=== PATIENT | female | born 1965 | race African-American/Black ===

== ENCOUNTER 2017-08-10 12:53 | Outpatient (CLI) | payer MEDICARE, MEDICAID ==
--- NOTE | 2017-08-10 15:18 | MMO ---
BILATERAL DIGITAL SCREENING MAMMOGRAMS: Date: 08/10/17 This patient's mammogram was interpreted with the assistance of computer-aided detection. Comparison made with exam of 07/05/13. FINDINGS: There are scattered fibroglandular densities. No suspicious masses, calcifications, or architectura l distortion are seen. Nodularity in the left breast is stable. IMPRESSION: BIRADS 2: Benign Finding(s) Annual mammographic screening is recommended. POS: [facility]
== END 2017-08-10 12:54 | disposition home or self-care (01) ==
LOC: MAMMO 12:53
PROVIDERS: ATTEND Family Medicine
DX: Z12.31 Encounter for screening mammogram for malignant neoplasm of breast (principal)
CPT/HCPCS: 77067; G0202

== ENCOUNTER 2018-06-15 10:03 | Emergency (ER) | payer MEDICARE, MEDICAID ==
[2018-06-15] MEDS ORDERED: Proparacaine 0.5% Opth 15 ML BOT ONE (10:53)
--- NOTE | 2018-06-15 11:46 | CT ---
CT BRAIN WITHOUT CONTRAST: Date: 06/15/18 HISTORY: Right eye pain which radiated into the head until loss of site. Dizziness and presyncope. FINDINGS: Comparison made with exam of 09/15/15. No evidence of infarct, hemorrhage, midline shift, or abnormal extra-axial fluid collections are seen . The ventricular size is normal and the basilar cisterns are patent. The bony calvarium is intact. T he visualized paranasal sinuses and mastoid air cells are well aerated. IMPRESSION: No CT evidence of acute intracranial process. POS: OFF
[2018-06-15 13:09] LABS: #Basophils 0.1 thou/uL (0.0-0.2); #Eosinphils 0.1 thou/uL (0.0-0.7); #Lymphocytes 1.2 thou/uL (1.20-3.40); #Monocytes 0.3 thou/uL (0.11-0.59); #Neutrophils 1.5 thou/uL (1.40-6.50); %Basophils 1.6 % (0.0-1.0); %Eosinophils 3.1 % (0.0-10.0); %Lymphocytes 36.7 % (21.0-51.0); %Monocytes 10.4 % (0.0-10.0); %Neutrophils 48.2 % (42.0-75.0); Hemoglobin 12.3 g/dL (12.0-16.0); Mean Corpuscular Volume 91.3 fL (78.0-98.0); Mean Platelet Volume 7.1 fL (7.4-10.4); Platelet Count 157 thou/uL (130-400); RBC Distribution Width 11.9 % (11.5-14.5); Red Blood Cell (RBC) Count 3.97 mill/uL (4.20-5.40); White Blood Cell (WBC) Count 3.2 thou/uL (4.8-10.8)
[2018-06-15 13:29] LABS: CKMB 1.2 ng/mL (0-6.6); Troponin I Less than 0.010 ng/mL (< 0.028)
[2018-06-15 13:30] LABS: AST (SGOT) 22 U/L (5-34); Albumin 3.8 g/dL (3.5-5.0); Anion Gap 15 mmol/L (10-20); BUN (Urea Nitrogen) 8 mg/dL (7.0-18.7); Bilirubin, Total 0.6 mg/dL (0.2-1.2); Calc. Creatinine Clearance 0 mL/min (70-130); Calcium 9.1 mg/dL (7.8-10.44); Carbon Dioxide 21 mmol/L (22-29); Chloride 99 mmol/L (98-107); Estimated GFR-MDRD Greater than 90; Glucose 61 mg/dL (70-105); Potassium 4.5 mmol/L (3.5-5.1); Protein, Total 6.8 g/dL (6.0-8.3); Sodium 130 mmol/L (136-145)
[2018-06-15 13:46] LABS: ALT (SGPT) 11 U/L (8-55); Alkaline Phosphatase 77 U/L (40-150)
== END 2018-06-15 13:56 | disposition home or self-care (01) ==
LOC: ERS 10:03
DX: H57.11 Ocular pain, right eye (principal); I10 Essential (primary) hypertension
CPT/HCPCS: 36415; 70450; 80053; 82553; 84484; 85025; 93005

== ENCOUNTER 2018-08-13 10:10 | Outpatient (CLI) | payer MEDICARE, MEDICAID | END 2018-08-13 10:11 | disposition home or self-care (01) | LOC: BICMAMMO 10:10 | PROVIDERS: ATTEND Family Medicine | DX: Z12.31 Encounter for screening mammogram for malignant neoplasm of breast (principal) | CPT/HCPCS: 77063; 77067 ==

== ENCOUNTER 2019-02-14 12:13 | Inpatient (IN) | payer MEDICARE, MEDICAID ==
--- NOTE | 2019-02-14 12:26 | CT ---
Head CT without contrast 02/14/2019: COMPARISON: 06/15/2018 HISTORY: Seizure, left-sided facial droop TECHNIQUE: Axial CT imaging at 5 mm intervals from vertex through skull base without contrast FINDINGS: Imaged paranasal sinuses and mastoid air cells are well aerated. No displaced calvarial fra cture. No intracranial hemorrhage, midline shift, mass effect, or ventricular enlargement. IMPRESSION: No acute findings. Results called to Dr. Jiang at 12:22 PM 02/14/2019.
[2019-02-14 12:45] LABS: PTT 24.4 SEC (22.9-36.1); Prothrombin Time 13.2 SEC (12.0-14.7)
[2019-02-14 12:57] LABS: ALT (SGPT) 9 U/L (8-55); AST (SGOT) 21 U/L (5-34); Albumin 3.7 g/dL (3.5-5.0); Alkaline Phosphatase 96 U/L (40-150); Anion Gap 13 mmol/L (10-20); BUN (Urea Nitrogen) 5 mg/dL (9.8-20.1); Bilirubin, Total 0.4 mg/dL (0.2-1.2); CK (CPK) 125 U/L (29-168); Calc. Creatinine Clearance 0 mL/min (70-130); Calcium 9.3 mg/dL (7.8-10.44); Carbon Dioxide 23 mmol/L (22-29); Chloride 89 mmol/L (98-107); Estimated GFR-MDRD Greater than 90; Globulin 3.1 g/dL (2.4-3.5); Glucose 100 mg/dL (70-105); Protein, Total 6.8 g/dL (6.0-8.3); Sodium 121 mmol/L (136-145)
[2019-02-14 13:16] LABS: Hemoglobin 12.8 g/dL (12.0-16.0); Mean Corpuscular HGB CONC 33.8 g/dL (32.0-36.0); Mean Corpuscular Hemoglobin 30.5 pg (27.0-31.0); Mean Corpuscular Volume 90.4 fL (78.0-98.0); Mean Platelet Volume 6.9 fL (7.4-10.4); Platelet Count 203 thou/uL (130-400); RBC Distribution Width 11.5 % (11.5-14.5); Red Blood Cell (RBC) Count 4.19 mill/uL (4.20-5.40)
[2019-02-14 13:39] LABS: Band 1 % (5-11); Eosinophils 1 % (0-10); Lymphocytes 45 % (21-51); MDiff Complete? YES; Monocytes 7 % (0-10); Neutrophil 46 % (42-75); Platelet Morphology Comment Appears Adequate; RBC Morphology Normal
[2019-02-14] MEDS ORDERED: Zolpidem Tartrate 5 MG TAB PO PRN (13:45)
[2019-02-14] MEDS ORDERED: cloNIDine 0.1 MG TAB PO PRN (13:45)
[2019-02-14] MEDS ORDERED: Acetaminophen 325 MG TAB PO PRN (13:45)
[2019-02-14] MEDS ORDERED: Ondansetron PF 4 MG/2 ML Vial IVP PRN (13:45)
[2019-02-14] MEDS ORDERED: Lorazepam 2 MG/ML VIAL SLOW IVP PRN (13:51)
--- NOTE | 2019-02-14 13:57 | PDOC.EVN ---
Event Note - Event Note Event Note: DC SUMMARY #[id number]
[2019-02-14 14:38] LABS: Bilirubin Negative (Negative); Blood, Urine Negative (Negative); Clarity CLEAR (Clear); Glucose, Urine (Dipstick) Negative (Negative); Leukocyte Negative (Negative); Nitrite Negative (Negative); Protein, Urine (Dipstick) Negative (Neg-Trace); Specific Gravity, Urine 1.005 (1.002-1.036); Urobilinogen 0.2 mg/dL (0.2-1.0)
[2019-02-14 14:47] LABS: Amphetamine Not Detected (NotDetected); Barbiturates Screen Not Detected (NotDetected); Benzodiazepine Screen Not Detected (NotDetected); Cocaine Metabolite Screen Not Detected (NotDetected); Medtox Control Line Valid? VALID (VALID); Medtox Reader # READER 1; Methadone Not Detected (NotDetected); Methamphetamine Not Detected (NotDetected); Opiate Screen Not Detected (NotDetected); Oxycodone Screen Not Detected (NotDetected); Phencyclidine (PCP) Not Detected (NotDetected); THC/Cannabinoid Screen Not Detected (NotDetected); Tricyclic Screen Not Detected (NotDetected)
--- NOTE | 2019-02-14 15:51 | MRI ---
MRI BRAIN WITHOUT CONTRAST: Multiplanar, multisequential imaging of brain obtained. INDICATION: Seizures. Hyponatremia. Pituitary abnormality. COMPARISON: Correlation is made to CT of 02/14/2019 which showed no acute finding. FINDINGS: The ventricles have normal size and position. There is no evidence of mass or edema. There is no re stricted diffusion. No significant white matter abnormality identified in FLAIR sequence. A few sca ttered nonspecific foci are seen. There is no evidence of hemorrhage. Pituitary appears normal on s agittal images. The intracranial internal carotid arteries and proximal cerebral arteries show flow voids. IMPRESSION: Unremarkable MRI of brain. POS: [facility]
[2019-02-14] MEDS: Sodium Chloride 0.9% 1,000 ML IV SCH (18:09)
--- NOTE | 2019-02-14 20:33 | HP ---
CHIEF COMPLAINT: Confusion, altered mental status, left-sided facial droop. HISTORY OF PRESENT ILLNESS: A 53-year-old female presenting to the ER with complaints of mild confusion. The patient was apparently brought in and found to have hyponatremia of 121. 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 The patient had a CT scan of the brain done which did not show any acute intracranial pathology. The patient states that she knows who she is and where she is, but is unable to recall the date or the year. The patient states that she does not recall what medications she takes. She states that she takes her medication she is given at home. Lives with her mother and grandmother, otherwise no other family. The patient's family was not at bedside at time of evaluation. Not much history available from the patient as she is a very poor history provider. The patient is seen and examined in the ER. All questions answered. ALLERGIES: PENICILLIN. THE PATIENT IS NOT SURE WHAT HAPPENS WHEN SHE TAKES THIS. 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 SOCIAL HISTORY: Nondrinker, nonsmoker. FAMILY HISTORY: The patient is unaware of any. HOME MEDICATIONS: See MAR. REVIEW OF SYSTEMS: All systems reviewed, pertinent positive in HPI, otherwise negative. PHYSICAL EXAMINATION: VITAL SIGNS: The patient's blood pressure is 118/80, temperature 98, O2 saturations 98% on 2 L nasal cannula, respiratory rate of 18. GENERAL: The patient lying in bed. No acute discomfort. Obese. HEENT: Pupils are equal, round, and reactive to light and accommodation. Right-sided facial droop noted. Oral cavity moist and pink. NECK: Supple, mobile, nontender. Thyroid appreciated. CARDIOVASCULAR: Reveals regular rate and rhythm. S1 and S2. No murmurs, rubs, or gallops appreciated. PULMONARY: Clear to auscultation bilaterally. Distant lung sounds. ABDOMEN: Positive bowel sounds. Soft, nontender, nondistended. EXTREMITIES: 2+ peripheral pulses, 2+ bilateral lower extremity pitting edema. NEUROLOGIC: Right-sided facial droop noted. Sensory function intact. Speech not slurred. Alert and oriented to person and place only. LABORATORY DATA: Reviewed. IMAGING STUDIES: Prior image studies reviewed. ASSESSMENT: 1. Hyponatremia. 2. History of seizure disorder. 3. History of Adame's palsy. 4. History of pituitary abnormality. 5. Hypertension. PLAN: 1. At this point in time, we will admit the patient to Internal Medicine Team, consult Neurology. We will start the patient on normal saline at 75 mL an hour. Repeat BMP to be done q.12 hours x4 times for trending. 2. I will also obtain an echocardiogram, cortisol level, TSH, A1c. 3. We will order an MRI. 4. We will start aspirin and statin as well. 5. The patient's default code status at this point would be end up being a full code as she is unable to tell me if she wants to be resuscitated or not. No family is available at bedside, phone number unavailable either. We will await lab work and adjust plan of care as the patient's condition progresses. Job ID: [id number]
[2019-02-14] MEDS: Lacosamide 50 mg Tablet PO SCH (20:50)
[2019-02-14] MEDS: Atorvastatin Calcium 40 MG TAB PO SCH (20:51)
[2019-02-14] MEDS: Heparin 5,000 UNITS/ML VIAL SC SCH (20:51)
[2019-02-14] MEDS ORDERED: levETIRAcetam 500 MG TAB PO SCH (21:15)
[2019-02-14] MEDS ORDERED: OXcarbazepine 600 MG TAB PO SCH (21:15)
[2019-02-14] MEDS ORDERED: OXcarbazepine 300 MG TAB PO SCH (21:30)
[2019-02-14 22:34] LABS: Anion Gap 11 mmol/L (10-20); BUN (Urea Nitrogen) 4 mg/dL (9.8-20.1); Calc. Creatinine Clearance 212 mL/min (70-130); Calcium 8.9 mg/dL (7.8-10.44); Carbon Dioxide 26 mmol/L (22-29); Chloride 93 mmol/L (98-107); Estimated GFR-MDRD Greater than 90; Glucose 83 mg/dL (70-105); Sodium 126 mmol/L (136-145)
--- NOTE | 2019-02-15 00:10 | CON ---
DATE OF CONSULTATION: 02/14/2019 CONSULTING SERVICE: Hospitalist Service. IMPRESSION: The patient probably had a partial seizure while she was at [facility]. She has a history of Adame palsy and her face appears to be normal to her baseline from what I have known for many years. Her MRI of the brain is normal. She seems to be back to her baseline. I do not see any need for change in treatment at this point. She will continue her home medications and I will follow up with her in the office. Job ID: [id number]
[2019-02-15] MEDS: Guaifenesin DM 100-10/5 ML UDCUP PO PRN (05:28)
[2019-02-15 05:51] LABS: Hemoglobin A1c 4.7 % (4.0-6.0)
[2019-02-15 05:54] LABS: Anion Gap 12 mmol/L (10-20); BUN (Urea Nitrogen) 5 mg/dL (9.8-20.1); Calc. Creatinine Clearance 201 mL/min (70-130); Calcium 9.3 mg/dL (7.8-10.44); Carbon Dioxide 21 mmol/L (22-29); Chloride 99 mmol/L (98-107); Estimated GFR-MDRD Greater than 90; Glucose 77 mg/dL (70-105); Potassium 4.4 mmol/L (3.5-5.1); Sodium 128 mmol/L (136-145)
[2019-02-15 05:57] LABS: Burr Cells SLIGHT = 2-5 cells (100X) (0-1/hpf); Hemoglobin 13.4 g/dL (12.0-16.0); Lymphocytes 43 % (21-51); MDiff Complete? YES; Mean Corpuscular HGB CONC 33.3 g/dL (32.0-36.0); Mean Corpuscular Hemoglobin 30.1 pg (27.0-31.0); Mean Corpuscular Volume 90.5 fL (78.0-98.0); Mean Platelet Volume 8.7 fL (7.4-10.4); Monocytes 18 % (0-10); Neutrophil 39 % (42-75); Platelet Count 37 thou/uL (130-400); Platelet Morphology Comment Appears Decreased; RBC Distribution Width 11.7 % (11.5-14.5); Red Blood Cell (RBC) Count 4.44 mill/uL (4.20-5.40); White Blood Cell (WBC) Count 2.2 thou/uL (4.8-10.8)
[2019-02-15] MEDS: Sodium Chloride 0.9% 1,000 ML IV SCH ×4 (06:45→21:24)
[2019-02-15 08:35] LABS: Creatinine, Urine 71.31 mg/dL (47-110)
[2019-02-15] MEDS: Aspirin 81 mg Enteric Coated Tablet PO SCH (08:59)
[2019-02-15] MEDS: Lacosamide 50 mg Tablet PO SCH ×2 (08:59→21:27)
[2019-02-15] MEDS: Loratadine 10 MG TAB PO SCH (08:59)
[2019-02-15] MEDS: levETIRAcetam 500 MG TAB PO SCH ×2 (09:00→21:20)
[2019-02-15] MEDS: OXcarbazepine 300 MG TAB PO SCH ×2 (09:01→21:21)
[2019-02-15] MEDS: Heparin 5,000 UNITS/ML VIAL SC SCH ×2 (10:02→21:22)
[2019-02-15] MEDS: Meloxicam 15 MG TAB PO SCH (10:02)
--- NOTE | 2019-02-15 11:08 | PDOC.PN ---
- Subjective Encounter Start Date: 02/15/19 Encounter Start Time: 11:06 Patient seen and examined, no new issues or complaints from the patient over epa 24 hours, no family at bedside. - Objective Vital Signs & Weight: Vital Signs (12 hours) Temp Pulse Resp BP Pulse Ox 02/15/19 09:03 98 02/15/19 07:44 97.9 F 72 16 130/83 98 02/15/19 04:00 98 F 76 16 119/57 L 98 02/15/19 00:00 97.9 F 81 16 113/77 100 Weight Weight 250 lb 5 oz I&O: 02/14/19 02/15/19 02/16/19 06:59 06:59 06:59 Intake Total 120 2725 Balance 120 2725 Result Diagrams: 02/15/19 05:13 02/15/19 05:13 Additional Labs: Accuchecks 02/14/19 12:19 POC Glucose 98 Phys Exam - Physical Examination Constitutional: NAD HEENT: PERRLA, moist MMs right sided facial droop Neck: no nodes, no JVD, supple Respiratory: no wheezing, no rales, no rhonchi Cardiovascular: RRR, no significant murmur, no rub Gastrointestinal: soft, non-tender, no distention, positive bowel sounds Musculoskeletal: pulses present, edema present Dx/Plan (1) Thrombocytopenia Code(s): D69.6 - THROMBOCYTOPENIA, UNSPECIFIED Status: Acute (2) Sethi's palsy Code(s): G51.0 - SETHI'S PALSY Status: Acute - Plan * Plts dropped very low, will repeat again to verify * heparin stopped * monitor labs in AM for now * if rising in AM will consider DC in AM * no changes in plan of care otherwise * case and plan d/w patient at length, she understood and agreed with this plan.
[2019-02-15 13:59] VITALS: BMI 43.0
[2019-02-15 15:55] LABS: Mean Corpuscular Hemoglobin 30.9 pg (27.0-31.0); Mean Corpuscular Volume 91.1 fL (78.0-98.0); Mean Platelet Volume 6.8 fL (7.4-10.4); Platelet Count 198 thou/uL (130-400); RBC Distribution Width 11.7 % (11.5-14.5); White Blood Cell (WBC) Count 2.5 thou/uL (4.8-10.8)
[2019-02-15 16:16] LABS: Band 3 % (5-11); Lymphocytes 41 % (21-51); MDiff Complete? YES; Monocytes 12 % (0-10); Neutrophil 37 % (42-75); Ovalocytes SLIGHT = 2-5 cells (100X) (0-1/hpf); Platelet Morphology Comment Appears Adequate; Reactive Lymphocytes 5 % (0-10)
--- NOTE | 2019-02-15 20:55 | PDOC.EVN ---
Event Note - Event Note Event Note: Called by RN re: resuming DVT prophylaxis with heparin given Plts 198. Held yesterday due to platelets 37. Reviewed chart and patient ambulatory. Advised mechanical SCDs, and for request to be addressed with daytime hospitalist. Discussed with Dr. Arriola who agrees with plan as above.
[2019-02-15] MEDS: Atorvastatin Calcium 40 MG TAB PO SCH (21:20)
[2019-02-16 06:07] LABS: Anion Gap 11 mmol/L (10-20); BUN (Urea Nitrogen) 7 mg/dL (9.8-20.1); Calc. Creatinine Clearance 206 mL/min (70-130); Carbon Dioxide 25 mmol/L (22-29); Chloride 100 mmol/L (98-107); Estimated GFR-MDRD Greater than 90; Glucose 74 mg/dL (70-105); Potassium 3.9 mmol/L (3.5-5.1); Sodium 132 mmol/L (136-145)
[2019-02-16 06:14] LABS: Band 2 % (5-11); Eosinophils 2 % (0-10); Hemoglobin 12.2 g/dL (12.0-16.0); Lymphocytes 42 % (21-51); MDiff Complete? YES; Mean Corpuscular HGB CONC 33.6 g/dL (32.0-36.0); Mean Corpuscular Hemoglobin 30.8 pg (27.0-31.0); Mean Corpuscular Volume 91.5 fL (78.0-98.0); Mean Platelet Volume 6.7 fL (7.4-10.4); Monocytes 16 % (0-10); Neutrophil 36 % (42-75); Platelet Count 176 thou/uL (130-400); Platelet Morphology Comment Appears Adequate; RBC Distribution Width 11.7 % (11.5-14.5); RBC Morphology Normal; Reactive Lymphocytes 2 % (0-10); Red Blood Cell (RBC) Count 3.97 mill/uL (4.20-5.40); White Blood Cell (WBC) Count 2.4 thou/uL (4.8-10.8)
[2019-02-16] MEDS: Guaifenesin DM 100-10/5 ML UDCUP PO PRN (06:14)
[2019-02-16] MEDS: OXcarbazepine 300 MG TAB PO SCH (08:21)
[2019-02-16] MEDS: Meloxicam 15 MG TAB PO SCH (08:21)
[2019-02-16] MEDS: Lacosamide 50 mg Tablet PO SCH (08:21)
[2019-02-16] MEDS: Aspirin 81 mg Enteric Coated Tablet PO SCH (08:22)
[2019-02-16] MEDS: Loratadine 10 MG TAB PO SCH (08:22)
[2019-02-16] MEDS: levETIRAcetam 500 MG TAB PO SCH (08:22)
[2019-02-16] MEDS: Heparin 5,000 UNITS/ML VIAL SC SCH (09:03)
--- NOTE | 2019-02-16 10:53 | PDOC.EVN ---
Event Note - Event Note Event Note: DC SUMMARY #[id number]
[2019-02-16 12:06] VITALS: BP 101/68; TEMP 98
--- NOTE | 2019-02-17 01:51 | DIS ---
DATE OF ADMISSION: 02/14/2019 DATE OF DISCHARGE: 02/16/2019 ADMITTING DIAGNOSES: 1. Altered mental status. 2. Hyponatremia. 3. Hypotension. 4. Left-sided facial droop. DISCHARGE DIAGNOSES: 1. Left-sided facial droop secondary to Adame's palsy. 2. Hyponatremia, resolved. 3. Hypotension, resolved. HOSPITAL COURSE: This is a 53-year-old female with past medical history of facial drooping, presented to the hospital with change in mental status as well as facial droop. The patient had evaluation done by Internal Medicine as well as Neurology, had a CT scan of her brain as well as an MRI done, which showed no acute abnormalities. The patient also had an echocardiogram performed, which was negative. Urine drug screen was negative. Urinalysis was negative. Of note, the patient's sodium levels were 121 at the time of discharge, were 132 at point in time of discharge. Advice was made to hold off on any SSRIs or SNRIs the patient was taking as these were probably the root cause of her hyponatremia medication induced. At point of time of discharge, the patient was stable, back to her baseline, and cleared from a medical perspective to be discharged to [facility]. Case and plan discussed with the patient at length. DISPOSITION: To [facility]. FOLLOWUP: Follow up with PCP within 1 week. MEDICATIONS: See MAR. ACTIVITY: As tolerated with assistance as needed. DIET: Low-fat, low-calorie, high-fiber plan-based diet. CONDITION: Stable. PROGNOSIS: Guarded. Job ID: [id number]
== END 2019-02-16 12:17 | DRG 74 ==
LOC: ERS 12:13 → ERHOLD 14:41 → 2SE 16:35
PROVIDERS: ADMIT Internal Medicine; ATTEND Internal Medicine
DX: G51.0 Bell's palsy (principal); E87.1 Hypo-osmolality and hyponatremia; I10 Essential (primary) hypertension; G40.909 Epilepsy, unspecified, not intractable, without status epilepticus; D69.6 Thrombocytopenia, unspecified; I95.9 Hypotension, unspecified; Z88.0 Allergy status to penicillin
CPT/HCPCS: 36415; 36416; 70450; 70496; 70498; 70551; 80048; 80053; 80306; 81003; 82533; 82550; 82570; 83036; 83930; 83935; 84146; 84300; 84443; 84484; 85025; 85610; 85730; 93005; 93306; 94760; J1644

== ENCOUNTER 2019-05-20 16:33 | Emergency (ER) | payer MEDICARE, MEDICAID ==
[2019-05-20] MEDS ORDERED: Acetaminophen 500 MG TAB ONE (18:04)
[2019-05-20 18:27] LABS: Hemoglobin 12.3 g/dL (12.0-16.0); Mean Corpuscular HGB CONC 32.6 g/dL (32.0-36.0); Mean Corpuscular Hemoglobin 30.3 pg (27.0-31.0); Mean Platelet Volume 7.2 fL (7.4-10.4); Platelet Count 183 thou/uL (130-400); RBC Distribution Width 12.2 % (11.5-14.5); Red Blood Cell (RBC) Count 4.04 mill/uL (4.20-5.40); White Blood Cell (WBC) Count 2.8 thou/uL (4.8-10.8)
--- NOTE | 2019-05-20 18:46 | CT ---
Head CT without contrast 05/20/2019: COMPARISON: 02/14/2019 HISTORY: Headache TECHNIQUE: Axial CT imaging at 5 mm intervals from vertex through skull base without contrast FINDINGS: Imaged paranasal sinuses and mastoid air cells are well aerated. There is no displaced calv arial fracture. No intracranial hemorrhage, midline shift, or mass effect. Mild stable cerebellar volume loss. IMPRESSION: Stable head CT-no acute findings.
[2019-05-20 18:55] LABS: ALT (SGPT) 8 U/L (8-55); AST (SGOT) 24 U/L (5-34); Acetaminophen Less than 6.0 mcg/mL (10.0-30.0); Albumin 3.9 g/dL (3.5-5.0); Alcohol Less than 10 mg/dL (Less than 10); Alkaline Phosphatase 78 U/L (40-150); Anion Gap 11 mmol/L (10-20); BUN (Urea Nitrogen) 6 mg/dL (9.8-20.1); Bilirubin, Total 0.4 mg/dL (0.2-1.2); Calc. Creatinine Clearance 0 mL/min (70-130); Carbon Dioxide 27 mmol/L (22-29); Chloride 102 mmol/L (98-107); Estimated GFR-MDRD Greater than 90; Globulin 2.9 g/dL (2.4-3.5); Glucose 87 mg/dL (70-105); Potassium 3.7 mmol/L (3.5-5.1); Protein, Total 6.8 g/dL (6.0-8.3); Salicylate Less than 8.0 mg/dL (15.0-30.0); Sodium 136 mmol/L (136-145)
[2019-05-20 19:04] LABS: Band 6 % (5-11); Eosinophils 3 % (0-10); Lymphocytes 53 % (21-51); MDiff Complete? YES; Monocytes 2 % (0-10); Neutrophil 34 % (42-75); Reactive Lymphocytes 2 % (0-10)
[2019-05-20 19:07] LABS: Bilirubin Negative (Negative); Blood, Urine Negative (Negative); Clarity Clear (Clear); Glucose, Urine (Dipstick) Normal (Negative); Leukocyte Negative Leu/uL (Negative); Nitrite Negative (Negative); Protein, Urine (Dipstick) Negative (Neg-Trace); Urobilinogen Normal mg/dL (Less than 2)
[2019-05-20 19:17] LABS: Amphetamine Not Detected (NotDetected); Barbiturates Screen Not Detected (NotDetected); Benzodiazepine Screen Not Detected (NotDetected); Cocaine Metabolite Screen Not Detected (NotDetected); Medtox Control Line Valid? VALID (VALID); Medtox Reader # READER 1; Methadone Not Detected (NotDetected); Methamphetamine Not Detected (NotDetected); Opiate Screen Not Detected (NotDetected); Oxycodone Screen Not Detected (NotDetected); Phencyclidine (PCP) Not Detected (NotDetected); THC/Cannabinoid Screen Not Detected (NotDetected); Tricyclic Screen Not Detected (NotDetected)
== END 2019-05-20 20:30 | disposition home or self-care (01) ==
LOC: ERS 16:33
DX: R51 Headache (principal); I10 Essential (primary) hypertension; E66.9 Obesity, unspecified; Z79.899 Other long term (current) drug therapy
CPT/HCPCS: 36415; 70450; 80053; 80306; 80307; 81003; 85025

== ENCOUNTER 2019-12-10 11:15 | Emergency (ER) | payer MEDICARE, MEDICAID ==
[2019-12-10 12:03] LABS: Hemoglobin 13.1 g/dL (12.0-16.0); Mean Corpuscular HGB CONC 32.3 g/dL (32.0-36.0); Mean Corpuscular Hemoglobin 31.1 pg (27.0-31.0); Mean Corpuscular Volume 96.2 fL (78.0-98.0); Mean Platelet Volume 7.5 fL (7.4-10.4); Platelet Count 173 thou/uL (130-400); RBC Distribution Width 12.4 % (11.5-14.5); White Blood Cell (WBC) Count 3.4 thou/uL (4.8-10.8)
[2019-12-10 12:24] LABS: Band 1 % (5-11); Eosinophils 1 % (0-10); Lymphocytes 34 % (21-51); MDiff Complete? YES; Monocytes 8 % (0-10); Neutrophil 54 % (42-75); RBC Morphology Normal; Reactive Lymphocytes 2 % (0-10)
[2019-12-10 12:53] LABS: Bilirubin Negative (Negative); Blood, Urine Negative (Negative); Clarity Clear (Clear); Glucose, Urine (Dipstick) Normal (Negative); Leukocyte Negative Leu/uL (Negative); Nitrite Negative (Negative); Protein, Urine (Dipstick) Negative (Neg-Trace); Urobilinogen Normal mg/dL (Less than 2)
[2019-12-10 13:04] LABS: Amphetamine Not Detected (NotDetected); Barbiturates Screen Not Detected (NotDetected); Benzodiazepine Screen Not Detected (NotDetected); Cocaine Metabolite Screen Not Detected (NotDetected); Medtox Control Line Valid? VALID (VALID); Medtox Reader # READER 1; Methadone Not Detected (NotDetected); Methamphetamine Not Detected (NotDetected); Opiate Screen Not Detected (NotDetected); Oxycodone Screen Not Detected (NotDetected); Phencyclidine (PCP) Not Detected (NotDetected); THC/Cannabinoid Screen Not Detected (NotDetected); Tricyclic Screen Not Detected (NotDetected)
[2019-12-10 13:08] LABS: ALT (SGPT) 13 U/L (8-55); AST (SGOT) 32 U/L (5-34); Albumin 4.3 g/dL (3.5-5.0); Alkaline Phosphatase 77 U/L (40-110); Anion Gap 13 mmol/L (10-20); BUN (Urea Nitrogen) 9 mg/dL (9.8-20.1); Bilirubin, Total 0.6 mg/dL (0.2-1.2); Calc. Creatinine Clearance 0 mL/min (70-130); Calcium 9.5 mg/dL (7.8-10.44); Carbon Dioxide 22 mmol/L (22-29); Chloride 105 mmol/L (98-107); Estimated GFR-MDRD Greater than 90; Globulin 3.5 g/dL (2.4-3.5); Glucose 72 mg/dL (70-105); Potassium 3.9 mmol/L (3.5-5.1); Protein, Total 7.8 g/dL (6.0-8.3); Sodium 136 mmol/L (136-145)
== END 2019-12-10 14:39 | disposition home or self-care (01) ==
LOC: ERS 11:15
DX: G40.909 Epilepsy, unspecified, not intractable, without status epilepticus (principal); I10 Essential (primary) hypertension; Z79.899 Other long term (current) drug therapy
CPT/HCPCS: 36416; 80053; 80306; 81003; 85025

== ENCOUNTER 2020-01-14 18:26 | Emergency (ER) | payer MEDICAID, MEDICARE | END 2020-01-14 18:59 | disposition home or self-care (01) | LOC: ERS 18:26 | DX: G40.909 Epilepsy, unspecified, not intractable, without status epilepticus (principal); I10 Essential (primary) hypertension; E66.9 Obesity, unspecified; Z79.899 Other long term (current) drug therapy | CPT/HCPCS: 99284 ==

== ENCOUNTER 2020-01-16 12:00 | Emergency (ER) | payer MEDICAID ==
--- NOTE | 2020-01-16 12:45 | CT ---
Exam: CT brain PROVIDED CLINICAL HISTORY: Altered mental status COMPARISON: 05/20/2019 FINDINGS: The ventricular system is normal in size and morphology. No evidence for intracranial hemorrhage or mass effect. The extracranial soft tissues and osseous structures demonstrate no evidence for an acute abnormality. IMPRESSION: No evidence for intracranial hemorrhage or mass effect.
[2020-01-16 12:55] LABS: Hemoglobin 10.7 g/dL (12.0-16.0); Mean Corpuscular HGB CONC 34.2 g/dL (32.0-36.0); Mean Corpuscular Hemoglobin 30.5 pg (27.0-31.0); Mean Corpuscular Volume 89.2 fL (78.0-98.0); RBC Distribution Width 12.8 % (11.5-14.5); Red Blood Cell (RBC) Count 3.51 mill/uL (4.20-5.40)
[2020-01-16 12:56] LABS: #Lymphocytes 0.8 thou/uL (1.20-3.40); #Monocytes 0.2 thou/uL (0.11-0.59); %Eosinophils 0.3 % (0.0-10.0); %Lymphocytes 19.3 % (21.0-51.0); %Monocytes 5.7 % (0.0-10.0); %Neutrophils 74.7 % (42.0-75.0)
--- NOTE | 2020-01-16 13:22 | RAD ---
PORTABLE CHEST 1 VIEW: Date: 01/16/2020 Time: 1246 hours HISTORY: Altered mental status. COMPARISON: 11/23/2015. FINDINGS: The heart size is normal. No lobar consolidation, pneumothoraces, or pleural effusions are seen. IMPRESSION: No radiographic evidence of acute cardiopulmonary process. POS: [facility]
[2020-01-16 13:24] LABS: Burr Cells SLIGHT = 2-5 cells (100X) (0-1/hpf); Large Platelets SLIGHT; MDiff Complete? YES; Ovalocytes SLIGHT = 2-5 cells (100X) (0-1/hpf); Platelet Count 40 thou/uL (130-400); Platelet Morphology Comment Appears Decreased; Polychromasia SLIGHT = 2-3 cells (100X) (0-2/hpf)
[2020-01-16 13:26] LABS: Bacteria/HPF None Seen HPF (None Seen); Bilirubin Negative (Negative); Blood, Urine Trace (Negative); Clarity Turbid (Clear); Glucose, Urine (Dipstick) Normal (Negative); Leukocyte Negative Leu/uL (Negative); Nitrite Negative (Negative); Protein, Urine (Dipstick) 70 mg/dL (Neg-Trace); RBC/HPF None Seen HPF (0-3); Squamous Epithelial 0-3 HPF (0-3); Urobilinogen Normal mg/dL (Less than 2)
[2020-01-16 13:26] LABS: ALT (SGPT) 29 U/L (8-55); AST (SGOT) 61 U/L (5-34); Acetaminophen Less than 6.0 mcg/mL (10.0-30.0); Albumin 2.8 g/dL (3.5-5.0); Alcohol Less than 10 mg/dL (Less than 10); Alkaline Phosphatase 33 U/L (40-110); Anion Gap 15 mmol/L (10-20); BUN (Urea Nitrogen) 19 mg/dL (9.8-20.1); Bilirubin, Total 0.9 mg/dL (0.2-1.2); Calc. Creatinine Clearance 0 mL/min (70-130); Calcium 8.2 mg/dL (7.8-10.44); Carbon Dioxide 22 mmol/L (22-29); Chloride 100 mmol/L (98-107); Estimated GFR-MDRD 67; Glucose 110 mg/dL (70-105); Protein, Total 5.8 g/dL (6.0-8.3); Salicylate Less than 8.0 mg/dL (15.0-30.0); Sodium 134 mmol/L (136-145)
[2020-01-16 13:29] LABS: Potassium 2.6 mmol/L (3.5-5.1)
[2020-01-16 13:30] LABS: Amphetamine Not Detected (NotDetected); Barbiturates Screen Not Detected (NotDetected); Benzodiazepine Screen Not Detected (NotDetected); Cocaine Metabolite Screen Not Detected (NotDetected); Medtox Control Line Valid? VALID (VALID); Medtox Reader # READER 1; Methadone Not Detected (NotDetected); Methamphetamine Not Detected (NotDetected); Opiate Screen Not Detected (NotDetected); Oxycodone Screen Not Detected (NotDetected); Phencyclidine (PCP) Not Detected (NotDetected); THC/Cannabinoid Screen Not Detected (NotDetected); Tricyclic Screen Not Detected (NotDetected)
[2020-01-16 13:37] LABS: Cellular Cast 0-3 LPF (None Seen)
[2020-01-16] MEDS ORDERED: cefTRIAXone\\ROCEPHIN 1 GM VIAL ONE (14:13)
[2020-01-16] MEDS ORDERED: Potassium Chloride 20 MEQ TAB ONE (14:13)
[2020-01-16] MEDS ORDERED: Acetaminophen 500 MG TAB ONE (14:50)
== END 2020-01-16 15:09 | disposition home or self-care (01) ==
LOC: ERS 12:00
DX: N39.0 Urinary tract infection, site not specified (principal); I10 Essential (primary) hypertension; R56.9 Unspecified convulsions; Z79.899 Other long term (current) drug therapy
CPT/HCPCS: 36415; 70450; 71045; 80053; 80306; 80307; 81003; 81015; 84443; 85025; 93005; 96365; A4353; J0696

== ENCOUNTER 2020-04-24 02:17 | Emergency (ER) | payer MEDICARE, MEDICAID ==
[2020-04-24] MEDS ORDERED: Acetaminophen 500 MG TAB ONE (02:50)
== END 2020-04-24 03:00 | disposition home or self-care (01) ==
LOC: ERS 02:17
DX: G89.29 Other chronic pain (principal); M79.641 Pain in right hand; M79.661 Pain in right lower leg; I10 Essential (primary) hypertension
CPT/HCPCS: 99281

== ENCOUNTER 2020-09-01 10:55 | Emergency (ER) | payer MEDICARE, MEDICAID ==
[2020-09-01] MEDS ORDERED: Acetaminophen 500 MG TAB ONE (11:44)
== END 2020-09-01 13:53 | disposition home or self-care (01) ==
LOC: ERS 10:55
DX: R51.9 Headache, unspecified (principal); E66.9 Obesity, unspecified; I10 Essential (primary) hypertension; F20.9 Schizophrenia, unspecified; F41.9 Anxiety disorder, unspecified; F32.9 Major depressive disorder, single episode, unspecified; Z79.899 Other long term (current) drug therapy
CPT/HCPCS: 93005

== ENCOUNTER 2020-09-16 11:57 | Emergency (ER) | payer MEDICARE, MEDICAID | END 2020-09-16 13:04 | disposition left against medical advice (07) | LOC: ERS 11:57 | DX: Z53.21 Procedure and treatment not carried out due to patient leaving prior to being seen by health care provider (principal) ==

== ENCOUNTER 2020-09-18 06:04 | Emergency (ER) | payer MEDICARE, MEDICAID ==
[2020-09-18] MEDS ORDERED: Ibuprofen 800 MG TAB ONE (06:46)
--- NOTE | 2020-10-03 15:04 | EKG ---
Test Reason : Blood Pressure : / mmHG Vent. Rate : 074 BPM Atrial Rate : 074 BPM P-R Int : 152 ms QRS Dur : 070 ms QT Int : 376 ms P-R-T Axes : 052 056 035 degrees QTc Int : 417 ms Normal sinus rhythm Normal ECG Confirmed by SHANNAN GONZALEZ ([id number]), deputy editor in chief ALIYAH COLVIN ([id number]) on 10/03/2020 3:04:19 PM Referred By: Confirmed By:SHANNAN GONZALEZ
== END 2020-09-18 07:08 | disposition home or self-care (01) ==
LOC: ERS 06:04
DX: M79.604 Pain in right leg (principal); R09.89 Other specified symptoms and signs involving the circulatory and respiratory systems
CPT/HCPCS: 93005

== ENCOUNTER 2020-10-06 20:36 | Emergency (ER) | payer MEDICARE, OTHER ==
[2020-10-06] MEDS ORDERED: Acetaminophen 500 MG TAB ONE (22:03)
== END 2020-10-06 22:08 | disposition home or self-care (01) ==
LOC: ERS 20:36
DX: G62.9 Polyneuropathy, unspecified (principal)
CPT/HCPCS: 99283

== ENCOUNTER 2020-10-19 22:57 | Emergency (ER) | payer MEDICARE, OTHER ==
--- NOTE | 2020-10-19 23:30 | RAD ---
Exam: Chest one view HISTORY:Chest pain. Comparison: 03/10/2020 FINDINGS: Cardiac silhouette: Normal Aorta: Unremarkable Pulmonary vessels: Normal Costophrenic angles: Clear LUNGS: No masses or consolidation. Pneumothorax: None Osseous abnormalities: None IMPRESSION: No acute cardiopulmonary process.
== END 2020-10-20 00:30 | disposition home or self-care (01) ==
LOC: ERS 22:57
DX: G89.29 Other chronic pain (principal)
CPT/HCPCS: 71045; 93005

== ENCOUNTER 2020-12-22 22:55 | Emergency (ER) | payer OTHER, MEDICAID | END 2020-12-23 01:29 | disposition home or self-care (01) | LOC: ERS 22:55 | DX: M62.89 Other specified disorders of muscle (principal) | CPT/HCPCS: 99281 ==

== ENCOUNTER 2020-12-25 00:48 | Emergency (ER) | payer OTHER, MEDICAID | END 2020-12-25 01:15 | disposition home or self-care (01) | LOC: ERS 00:48 | DX: R20.2 Paresthesia of skin (principal) | CPT/HCPCS: 99281 ==

== ENCOUNTER 2021-02-25 20:09 | Emergency (ER) | payer OTHER, MEDICAID | END 2021-02-25 21:51 | disposition home or self-care (01) | LOC: ERS 20:09 | DX: G62.9 Polyneuropathy, unspecified (principal) | CPT/HCPCS: 99281 ==

== ENCOUNTER 2021-02-26 05:27 | Emergency (ER) | payer OTHER, MEDICAID | END 2021-02-26 05:40 | disposition home or self-care (01) | LOC: ERS 05:27 | DX: G62.9 Polyneuropathy, unspecified (principal) | CPT/HCPCS: 99281 ==

== ENCOUNTER 2021-04-20 22:01 | Emergency (ER) | payer MEDICARE, MEDICAID ==
[2021-04-21 00:02] LABS: Bilirubin Negative (Negative); Blood, Urine Negative (Negative); Clarity Clear (Clear); Glucose, Urine (Dipstick) Normal (Negative); Ketone, Urine Negative (Negative); Leukocyte Negative Leu/uL (Negative); Nitrite Negative (Negative); Protein, Urine (Dipstick) Negative (Neg-Trace); Specific Gravity, Urine 1.005 (1.002-1.036); Urobilinogen Normal mg/dL (Less than 2)
[2021-04-21 00:14] LABS: Specific Gravity 1.005 (1.002-1.036)
[2021-04-21 00:15] LABS: Pregnancy Test - Urine (BHCG) Negative (Negative); Pregu Control Background? CLEAR/WHITE (CLR/WHITE); Pregu Control Bar Appear? YES (CONTROL BAR)
== END 2021-04-21 00:43 | disposition home or self-care (01) ==
LOC: ERS 22:01
DX: R35.8 Other polyuria (principal); S70.12XA Contusion of left thigh, initial encounter
CPT/HCPCS: 36416; 81003; 81025; 93005

== ENCOUNTER 2021-07-02 05:19 | Emergency (ER) | payer MEDICARE, MEDICAID | END 2021-07-02 05:41 | disposition home or self-care (01) | LOC: ERS 05:19 | DX: F41.9 Anxiety disorder, unspecified (principal) | CPT/HCPCS: 99284 ==

== ENCOUNTER 2021-07-06 02:59 | Emergency (ER) | payer MEDICARE, MEDICAID ==
[2021-07-06] MEDS ORDERED: Lorazepam 2 MG/ML VIAL ONE (04:03)
== END 2021-07-06 05:10 | disposition home or self-care (01) ==
LOC: ERS 02:59
DX: M62.838 Other muscle spasm (principal)
CPT/HCPCS: 96372; 99283; J2060

== ENCOUNTER 2021-08-08 00:43 | Emergency (ER) | payer MEDICAID, MEDICARE | END 2021-08-08 01:31 | disposition home or self-care (01) | LOC: ERS 00:43 | DX: R20.2 Paresthesia of skin (principal) | CPT/HCPCS: 99284 ==

== ENCOUNTER 2021-08-26 20:00 | Emergency (ER) | payer MEDICARE, OTHER ==
[2021-08-26 20:42] LABS: #Eosinphils 0.1 thou/uL (0.0-0.7); #Lymphocytes 1.5 thou/uL (1.20-3.40); #Monocytes 0.5 thou/uL (0.11-0.59); #Neutrophils 2.2 thou/uL (1.40-6.50); %Basophils 0.4 % (0.0-1.0); %Eosinophils 2.2 % (0.0-10.0); %Lymphocytes 34.9 % (21.0-51.0); %Monocytes 10.8 % (0.0-10.0); %Neutrophils 51.7 % (42.0-75.0); Hemoglobin 11.9 g/dL (12.0-16.0); Mean Corpuscular HGB CONC 32.5 g/dL (32.0-36.0); Mean Corpuscular Volume 95.5 fL (78.0-98.0); Mean Platelet Volume 7.3 fL (7.4-10.4); Platelet Count 152 thou/uL (130-400); Red Blood Cell (RBC) Count 3.85 mill/uL (4.20-5.40); White Blood Cell (WBC) Count 4.3 thou/uL (4.8-10.8)
[2021-08-26 21:01] LABS: ALT (SGPT) 10 U/L (8-55); AST (SGOT) 20 U/L (5-34); Albumin 3.6 g/dL (3.5-5.0); Alkaline Phosphatase 76 U/L (40-110); Anion Gap 10 mmol/L (10-20); BUN (Urea Nitrogen) 12 mg/dL (9.8-20.1); Bilirubin, Total 0.2 mg/dL (0.2-1.2); Calc. Creatinine Clearance 0 mL/min (70-130); Calcium 9.1 mg/dL (7.8-10.44); Carbon Dioxide 24 mmol/L (22-29); Chloride 111 mmol/L (98-107); Globulin 3.1 g/dL (2.4-3.5); Glucose 106 mg/dL (70-105); Potassium 3.2 mmol/L (3.5-5.1); Protein, Total 6.7 g/dL (6.0-8.3); Sodium 142 mmol/L (136-145)
== END 2021-08-26 23:05 | disposition home or self-care (01) ==
LOC: ERS 20:00
DX: R55 Syncope and collapse (principal); E87.6 Hypokalemia
CPT/HCPCS: 36415; 70450; 80053; 85025; 93005

== ENCOUNTER 2021-08-29 07:52 | Emergency (ER) | payer MEDICARE, OTHER | END 2021-08-29 09:24 | disposition home or self-care (01) | LOC: ERS 07:52 | DX: R20.0 Anesthesia of skin (principal); Z79.899 Other long term (current) drug therapy ==

== ENCOUNTER 2021-08-29 17:43 | Emergency (ER) | payer OTHER | END 2021-08-29 18:57 | disposition home or self-care (01) | LOC: ERS 17:43 | DX: R51.9 Headache, unspecified (principal) | CPT/HCPCS: 99281 ==

== ENCOUNTER 2021-09-08 22:29 | Emergency (ER) | payer MEDICARE, MEDICAID | END 2021-09-08 23:09 | disposition home or self-care (01) | LOC: ERS 22:29 | DX: R19.7 Diarrhea, unspecified (principal) | CPT/HCPCS: 99284 ==

== ENCOUNTER 2021-09-11 18:52 | Emergency (ER) | payer MEDICARE, MEDICAID | END 2021-09-11 20:20 | disposition home or self-care (01) | LOC: ERS 18:52 | DX: T59.811A Toxic effect of smoke, accidental (unintentional), initial encounter (principal); R05.9 Cough, unspecified; I10 Essential (primary) hypertension | CPT/HCPCS: 99281 ==

== ENCOUNTER 2021-09-30 12:06 | Emergency (ER) | payer MEDICARE, MEDICAID ==
[2021-09-30 14:11] LABS: ALT (SGPT) 14 U/L (8-55); AST (SGOT) 35 U/L (5-34); Albumin 4.1 g/dL (3.5-5.0); Alkaline Phosphatase 86 U/L (40-110); Anion Gap 18 mmol/L (10-20); BUN (Urea Nitrogen) 10 mg/dL (9.8-20.1); Bilirubin, Total 0.5 mg/dL (0.2-1.2); Calc. Creatinine Clearance 0 mL/min (70-130); Calcium 9.7 mg/dL (7.8-10.44); Carbon Dioxide 18 mmol/L (22-29); Chloride 108 mmol/L (98-107); Globulin 3.6 g/dL (2.4-3.5); Glucose 76 mg/dL (70-105); Potassium 4.9 mmol/L (3.5-5.1); Protein, Total 7.7 g/dL (6.0-8.3); Sodium 139 mmol/L (136-145)
[2021-09-30 14:17] LABS: Hemoglobin 13.3 g/dL (12.0-16.0); Mean Corpuscular HGB CONC 33.1 g/dL (32.0-36.0); Mean Corpuscular Hemoglobin 31.4 pg (27.0-31.0); Mean Corpuscular Volume 94.8 fL (78.0-98.0); Mean Platelet Volume 7.8 fL (7.4-10.4); Platelet Count 137 thou/uL (130-400); Red Blood Cell (RBC) Count 4.25 mill/uL (4.20-5.40); White Blood Cell (WBC) Count 3.8 thou/uL (4.8-10.8)
[2021-09-30 14:42] LABS: Burr Cells SLIGHT = 2-5 cells (100X) (0-1/hpf); Lymphocytes 35 % (21-51); MDiff Complete? YES; Monocytes 6 % (0-10); Neutrophil 58 % (42-75); Platelet Morphology Comment Appears Adequate; Polychromasia SLIGHT = 2-3 cells (100X) (0-2/hpf)
== END 2021-09-30 15:38 | disposition home or self-care (01) ==
LOC: ERS 12:06
DX: M62.81 Muscle weakness (generalized) (principal); R56.9 Unspecified convulsions
CPT/HCPCS: 36415; 80053; 85025; 93005

== ENCOUNTER 2021-10-02 19:46 | Emergency (ER) | payer MEDICARE, MEDICAID | END 2021-10-02 20:47 | disposition home or self-care (01) | LOC: ERS 19:46 | DX: H53.8 Other visual disturbances (principal) | CPT/HCPCS: 99284 ==

== ENCOUNTER 2021-10-18 12:26 | Emergency (ER) | payer MEDICARE, MEDICAID | END 2021-10-18 14:17 | disposition home or self-care (01) | LOC: ERS 12:26 | DX: G51.0 Bell's palsy (principal); I10 Essential (primary) hypertension; Z79.899 Other long term (current) drug therapy | CPT/HCPCS: 99284 ==

== ENCOUNTER 2021-10-28 17:48 | Emergency (ER) | payer MEDICARE, MEDICAID | END 2021-10-28 19:44 | disposition home or self-care (01) | LOC: ERS 17:48 | DX: J02.9 Acute pharyngitis, unspecified (principal) | CPT/HCPCS: 99283 ==

== ENCOUNTER 2021-11-08 01:12 | Emergency (ER) | payer MEDICARE, MEDICAID | END 2021-11-08 02:45 | disposition home or self-care (01) | LOC: ERS 01:12 | DX: J06.9 Acute upper respiratory infection, unspecified (principal); R20.2 Paresthesia of skin | CPT/HCPCS: 99284 ==

== ENCOUNTER 2021-11-12 12:28 | Emergency (ER) | payer MEDICARE, MEDICAID | END 2021-11-12 13:25 | disposition home or self-care (01) | LOC: ERS 12:28 | DX: R56.9 Unspecified convulsions (principal); Z79.899 Other long term (current) drug therapy | CPT/HCPCS: 99284 ==

== ENCOUNTER 2021-11-16 17:54 | Emergency (ER) | payer MEDICARE, MEDICAID | END 2021-11-16 19:10 | disposition home or self-care (01) | LOC: ERS 17:54 | DX: R51.9 Headache, unspecified (principal) | CPT/HCPCS: 99281 ==

== ENCOUNTER 2021-11-19 21:55 | Emergency (ER) | payer MEDICARE, MEDICAID ==
[2021-11-19 22:54] LABS: #Eosinphils 0.1 thou/uL (0.0-0.7); #Lymphocytes 1.8 thou/uL (1.20-3.40); #Monocytes 0.4 thou/uL (0.11-0.59); #Neutrophils 2.2 thou/uL (1.40-6.50); %Basophils 0.6 % (0.0-1.0); %Eosinophils 1.2 % (0.0-10.0); %Lymphocytes 39.9 % (21.0-51.0); %Monocytes 9.4 % (0.0-10.0); %Neutrophils 48.8 % (42.0-75.0); Hemoglobin 12.4 g/dL (12.0-16.0); Mean Corpuscular Volume 94.4 fL (78.0-98.0); Mean Platelet Volume 6.9 fL (7.4-10.4); Platelet Count 145 thou/uL (130-400); RBC Distribution Width 11.7 % (11.5-14.5); Red Blood Cell (RBC) Count 3.86 mill/uL (4.20-5.40); White Blood Cell (WBC) Count 4.5 thou/uL (4.8-10.8)
[2021-11-19 23:15] LABS: ALT (SGPT) 12 U/L (8-55); AST (SGOT) 19 U/L (5-34); Albumin 3.5 g/dL (3.5-5.0); Alkaline Phosphatase 76 U/L (40-110); Anion Gap 10 mmol/L (10-20); BUN (Urea Nitrogen) 13 mg/dL (9.8-20.1); Bilirubin, Total 0.4 mg/dL (0.2-1.2); Calc. Creatinine Clearance 0 mL/min (70-130); Calcium 9.3 mg/dL (7.8-10.44); Carbon Dioxide 24 mmol/L (22-29); Chloride 109 mmol/L (98-107); Glucose 88 mg/dL (70-105); Potassium 3.5 mmol/L (3.5-5.1); Protein, Total 6.5 g/dL (6.0-8.3); Sodium 139 mmol/L (136-145)
[2021-11-19 23:38] LABS: Bilirubin Negative (Negative); Blood, Urine Negative (Negative); Clarity Clear (Clear); Glucose, Urine (Dipstick) Normal (Negative); Ketone, Urine Negative (Negative); Leukocyte Negative Leu/uL (Negative); Nitrite Negative (Negative); Protein, Urine (Dipstick) Negative (Neg-Trace); Specific Gravity, Urine 1.008 (1.002-1.036); Urobilinogen Normal mg/dL (Less than 2); pH, Urine 7.5 (5.0-9.0)
== END 2021-11-20 01:05 | disposition home or self-care (01) ==
LOC: ERS 21:55
DX: M79.10 Myalgia, unspecified site (principal); E66.01 Morbid (severe) obesity due to excess calories
CPT/HCPCS: 36415; 80053; 81003; 85025; 93005

== ENCOUNTER 2021-11-27 14:33 | Emergency (ER) | payer MEDICARE, MEDICAID ==
[2021-11-27] MEDS ORDERED: Aspirin Chewable 81 MG TAB ONE (15:29)
[2021-11-27 16:38] LABS: #Eosinphils 0.1 thou/uL (0.0-0.7); #Lymphocytes 1.4 thou/uL (1.20-3.40); #Monocytes 0.3 thou/uL (0.11-0.59); #Neutrophils 1.3 thou/uL (1.40-6.50); %Basophils 0.6 % (0.0-1.0); %Eosinophils 2.7 % (0.0-10.0); %Lymphocytes 43.8 % (21.0-51.0); %Monocytes 10.6 % (0.0-10.0); %Neutrophils 42.3 % (42.0-75.0); Hemoglobin 12.6 g/dL (12.0-16.0); Mean Corpuscular HGB CONC 33.4 g/dL (32.0-36.0); Mean Corpuscular Hemoglobin 33.1 pg (27.0-31.0); Mean Corpuscular Volume 99.2 fL (78.0-98.0); Mean Platelet Volume 7.5 fL (7.4-10.4); Platelet Count 133 thou/uL (130-400); RBC Distribution Width 11.8 % (11.5-14.5); White Blood Cell (WBC) Count 3.2 thou/uL (4.8-10.8)
[2021-11-27 16:55] LABS: ALT (SGPT) 13 U/L (8-55); AST (SGOT) 21 U/L (5-34); Albumin 3.5 g/dL (3.5-5.0); Alkaline Phosphatase 67 U/L (40-110); Anion Gap 11 mmol/L (10-20); BUN (Urea Nitrogen) 13 mg/dL (9.8-20.1); Bilirubin, Total 0.3 mg/dL (0.2-1.2); CK (CPK) 138 U/L (29-168); Calc. Creatinine Clearance 0 mL/min (70-130); Calcium 8.7 mg/dL (7.8-10.44); Carbon Dioxide 25 mmol/L (22-29); Chloride 110 mmol/L (98-107); Globulin 2.7 g/dL (2.4-3.5); Glucose 74 mg/dL (70-105); Potassium 3.5 mmol/L (3.5-5.1); Protein, Total 6.2 g/dL (6.0-8.3); Sodium 142 mmol/L (136-145)
[2021-11-27 17:00] LABS: Bilirubin Negative (Negative); Blood, Urine Negative (Negative); Glucose, Urine (Dipstick) Normal (Negative); Ketone, Urine Negative (Negative); Leukocyte Negative Leu/uL (Negative); Nitrite Negative (Negative); Protein, Urine (Dipstick) Negative (Neg-Trace); Specific Gravity, Urine 1.019 (1.002-1.036); Urobilinogen Normal mg/dL (Less than 2); pH, Urine 7.5 (5.0-9.0)
[2021-11-27 17:02] LABS: Clarity Hazy (Clear)
== END 2021-11-27 21:25 | disposition home or self-care (01) ==
LOC: ERS 14:33
DX: R07.89 Other chest pain (principal); I10 Essential (primary) hypertension; E78.5 Hyperlipidemia, unspecified; G51.0 Bell's palsy
CPT/HCPCS: 36415; 71045; 80053; 81003; 82550; 84484; 85025; 93005

== ENCOUNTER 2021-12-07 21:41 | Emergency (ER) | payer MEDICARE, MEDICAID ==
[2021-12-08] MEDS ORDERED: Ibuprofen 200 MG TAB ONE (00:27)
== END 2021-12-08 00:55 | disposition home or self-care (01) ==
LOC: ERS 21:41
DX: M79.641 Pain in right hand (principal); E78.5 Hyperlipidemia, unspecified; I10 Essential (primary) hypertension
CPT/HCPCS: 99283

== ENCOUNTER 2021-12-09 19:42 | Emergency (ER) | payer MEDICARE, MEDICAID | END 2021-12-09 21:20 | disposition home or self-care (01) | LOC: ERS 19:42 | DX: H53.8 Other visual disturbances (principal); I10 Essential (primary) hypertension; E78.5 Hyperlipidemia, unspecified; G51.0 Bell's palsy | CPT/HCPCS: 99284 ==

== ENCOUNTER 2021-12-10 15:02 | Emergency (ER) | payer MEDICARE, MEDICAID ==
[2021-12-10 16:04] LABS: #Monocytes 0.3 thou/uL (0.11-0.59); #Neutrophils 2.2 thou/uL (1.40-6.50); %Basophils 0.5 % (0.0-1.0); %Eosinophils 0.3 % (0.0-10.0); %Monocytes 8.3 % (0.0-10.0); %Neutrophils 61.8 % (42.0-75.0); Hemoglobin 12.6 g/dL (12.0-16.0); Mean Corpuscular HGB CONC 32.7 g/dL (32.0-36.0); Mean Corpuscular Hemoglobin 31.6 pg (27.0-31.0); Mean Corpuscular Volume 96.8 fL (78.0-98.0); Mean Platelet Volume 6.9 fL (7.4-10.4); Platelet Count 173 thou/uL (130-400); RBC Distribution Width 11.9 % (11.5-14.5); Red Blood Cell (RBC) Count 3.98 mill/uL (4.20-5.40); White Blood Cell (WBC) Count 3.6 thou/uL (4.8-10.8)
[2021-12-10 16:21] LABS: Anion Gap 13 mmol/L (10-20); BUN (Urea Nitrogen) 13 mg/dL (9.8-20.1); Calc. Creatinine Clearance 0 mL/min (70-130); Calcium 9.2 mg/dL (7.8-10.44); Carbon Dioxide 23 mmol/L (22-29); Chloride 105 mmol/L (98-107); Glucose 81 mg/dL (70-105); Potassium 4.1 mmol/L (3.5-5.1); Sodium 137 mmol/L (136-145)
[2021-12-10] MEDS ORDERED: Acetaminophen 500 MG TAB ONE (17:19)
[2021-12-10] MEDS ORDERED: Ibuprofen 200 MG TAB ONE (17:19)
== END 2021-12-10 17:23 | disposition home or self-care (01) ==
LOC: ERS 15:02
DX: R56.9 Unspecified convulsions (principal); E78.5 Hyperlipidemia, unspecified; I10 Essential (primary) hypertension; G51.0 Bell's palsy
CPT/HCPCS: 36415; 80048; 80177; 84146; 85025; 99284

== ENCOUNTER 2021-12-28 21:06 | Emergency (ER) | payer MEDICARE, MEDICAID | END 2021-12-28 21:46 | disposition home or self-care (01) | LOC: ERS 21:06 | DX: M62.89 Other specified disorders of muscle (principal); E78.5 Hyperlipidemia, unspecified; I10 Essential (primary) hypertension; G51.0 Bell's palsy; F41.9 Anxiety disorder, unspecified; Z79.899 Other long term (current) drug therapy | CPT/HCPCS: 99281; 99283 ==

== ENCOUNTER 2021-12-31 08:05 | Emergency (ER) | payer MEDICARE, MEDICAID | END 2021-12-31 08:40 | disposition home or self-care (01) | LOC: ERS 08:05 | DX: Z00.00 Encounter for general adult medical examination without abnormal findings (principal); I10 Essential (primary) hypertension; E78.5 Hyperlipidemia, unspecified; G51.0 Bell's palsy | CPT/HCPCS: 99283 ==

== ENCOUNTER 2022-01-19 09:13 | Emergency (ER) | payer OTHER, MEDICAID, MEDICARE ==
[2022-01-19 10:14] LABS: Hemoglobin 11.5 g/dL (12.0-16.0); Mean Corpuscular HGB CONC 32.7 g/dL (32.0-36.0); Mean Corpuscular Hemoglobin 33.1 pg (27.0-31.0); Red Blood Cell (RBC) Count 3.48 mill/uL (4.20-5.40); White Blood Cell (WBC) Count 3.5 thou/uL (4.8-10.8)
[2022-01-19 10:19] LABS: ALT (SGPT) 22 U/L (8-55); AST (SGOT) 50 U/L (5-34); Albumin 3.7 g/dL (3.5-5.0); Alkaline Phosphatase 76 U/L (40-110); Anion Gap 13 mmol/L (10-20); BUN (Urea Nitrogen) 19 mg/dL (9.8-20.1); Bilirubin, Total 0.6 mg/dL (0.2-1.2); Calc. Creatinine Clearance 0 mL/min (70-130); Calcium 8.9 mg/dL (7.8-10.44); Carbon Dioxide 23 mmol/L (22-29); Chloride 109 mmol/L (98-107); Globulin 2.6 g/dL (2.4-3.5); Glucose 85 mg/dL (70-105); Potassium 3.9 mmol/L (3.5-5.1); Protein, Total 6.3 g/dL (6.0-8.3); Sodium 141 mmol/L (136-145)
[2022-01-19 10:29] LABS: Eosinophils 1 % (0-10); Lymphocytes 37 % (21-51); MDiff Complete? YES; Mean Platelet Volume 8.4 fL (7.4-10.4); Monocytes 9 % (0-10); Neutrophil 53 % (42-75); Platelet Count 109 thou/uL (130-400); Platelet Morphology Comment Appears Decreased; Polychromasia SLIGHT = 2-3 cells (100X) (0-2/hpf); RBC Distribution Width 12.6 % (11.5-14.5)
== END 2022-01-19 11:00 | disposition home or self-care (01) ==
LOC: ERS 09:13
DX: I10 Essential (primary) hypertension (principal); D61.818 Other pancytopenia; E78.5 Hyperlipidemia, unspecified; G51.0 Bell's palsy; Z79.899 Other long term (current) drug therapy
CPT/HCPCS: 36415; 71045; 80053; 84484; 85025; 93005

== ENCOUNTER 2022-01-21 14:39 | Emergency (ER) | payer MEDICARE, MEDICAID | END 2022-01-21 15:36 | disposition home or self-care (01) | LOC: ERS 14:39 | DX: Z02.89 Encounter for other administrative examinations (principal); I10 Essential (primary) hypertension; E78.5 Hyperlipidemia, unspecified; G51.0 Bell's palsy ==

== ENCOUNTER 2022-02-14 18:17 | Emergency (ER) | payer MEDICARE, MEDICAID | END 2022-02-14 20:13 | disposition home or self-care (01) | LOC: ERS 18:17 | DX: R20.9 Unspecified disturbances of skin sensation (principal); E78.5 Hyperlipidemia, unspecified; I10 Essential (primary) hypertension; G51.0 Bell's palsy | CPT/HCPCS: 99283 ==

== ENCOUNTER 2022-02-15 12:37 | Emergency (ER) | payer MEDICARE, MEDICAID ==
[2022-02-15] MEDS ORDERED: Divalproex Sodium 250 MG (DR) TAB ONE (15:12)
[2022-02-15] MEDS ORDERED: levETIRAcetam 500 MG TAB PO SCH (15:30)
== END 2022-02-15 15:30 | disposition home or self-care (01) ==
LOC: ERS 12:37
DX: R56.9 Unspecified convulsions (principal); I10 Essential (primary) hypertension; E78.5 Hyperlipidemia, unspecified
CPT/HCPCS: 99283

== ENCOUNTER 2022-02-24 09:36 | Emergency (ER) | payer MEDICARE, MEDICAID ==
[2022-02-24] MEDS ORDERED: Acetaminophen 500 MG TAB ONE (10:57)
== END 2022-02-24 11:14 | disposition home or self-care (01) ==
LOC: ERS 09:36
DX: M25.571 Pain in right ankle and joints of right foot (principal); E78.5 Hyperlipidemia, unspecified; I10 Essential (primary) hypertension; Z79.899 Other long term (current) drug therapy

== ENCOUNTER 2022-04-07 17:46 | Emergency (ER) | payer MEDICARE, MEDICAID ==
[2022-04-07 18:23] LABS: #Eosinphils 0.1 thou/uL (0.0-0.7); #Lymphocytes 1.3 thou/uL (1.20-3.40); #Monocytes 0.4 thou/uL (0.11-0.59); #Neutrophils 1.8 thou/uL (1.40-6.50); %Basophils 0.9 % (0.0-1.0); %Eosinophils 2.4 % (0.0-10.0); %Lymphocytes 35.5 % (21.0-51.0); %Monocytes 11.5 % (0.0-10.0); %Neutrophils 49.7 % (42.0-75.0); Hemoglobin 12.2 g/dL (12.0-16.0); Mean Corpuscular HGB CONC 31.4 g/dL (32.0-36.0); Mean Corpuscular Hemoglobin 31.1 pg (27.0-31.0); Mean Corpuscular Volume 99.1 fL (78.0-98.0); Mean Platelet Volume 7.5 fL (7.4-10.4); Platelet Count 151 thou/uL (130-400); RBC Distribution Width 12.3 % (11.5-14.5); Red Blood Cell (RBC) Count 3.93 mill/uL (4.20-5.40); White Blood Cell (WBC) Count 3.6 thou/uL (4.8-10.8)
[2022-04-07 18:44] LABS: ALT (SGPT) 12 U/L (8-55); AST (SGOT) 22 U/L (5-34); Albumin 3.7 g/dL (3.5-5.0); Alkaline Phosphatase 97 U/L (40-110); Anion Gap 12 mmol/L (10-20); BUN (Urea Nitrogen) 17 mg/dL (9.8-20.1); Bilirubin, Total 0.3 mg/dL (0.2-1.2); Calc. Creatinine Clearance 0 mL/min (70-130); Calcium 9.1 mg/dL (7.8-10.44); Carbon Dioxide 26 mmol/L (22-29); Chloride 106 mmol/L (98-107); Globulin 3.5 g/dL (2.4-3.5); Glucose 82 mg/dL (70-105); Lipase 33 U/L (8-78); Protein, Total 7.2 g/dL (6.0-8.3); Sodium 140 mmol/L (136-145)
[2022-04-07 18:57] LABS: Bacteria/HPF None Seen HPF (None Seen); Bilirubin Negative (Negative); Blood, Urine Negative (Negative); Clarity Clear (Clear); Glucose, Urine (Dipstick) Normal (Negative); Ketone, Urine Negative (Negative); Leukocyte 25 Leu/uL (Negative); Nitrite Negative (Negative); Protein, Urine (Dipstick) Negative (Neg-Trace); RBC/HPF 0-3 HPF (0-3); Specific Gravity, Urine 1.025 (1.002-1.036); Squamous Epithelial 0-3 HPF (0-3); Urobilinogen Normal mg/dL (Less than 2); WBC/HPF 0-3 HPF (0-3); pH, Urine 6.5 (5.0-9.0)
== END 2022-04-07 20:07 | disposition home or self-care (01) ==
LOC: ERS 17:46
DX: R10.9 Unspecified abdominal pain (principal); G62.9 Polyneuropathy, unspecified; I10 Essential (primary) hypertension; E78.5 Hyperlipidemia, unspecified; G51.0 Bell's palsy; Z79.899 Other long term (current) drug therapy
CPT/HCPCS: 36415; 80053; 81003; 81015; 83690; 85025; 94760

== ENCOUNTER 2022-05-09 11:32 | Emergency (ER) | payer MEDICARE, MEDICAID ==
[2022-05-09] MEDS ORDERED: Acetaminophen 500 MG TAB ONE (16:14)
== END 2022-05-09 16:17 | disposition home or self-care (01) ==
LOC: ERS 11:32
DX: M79.671 Pain in right foot (principal); I10 Essential (primary) hypertension; E78.5 Hyperlipidemia, unspecified
CPT/HCPCS: 93005

== ENCOUNTER 2022-05-17 19:30 | Emergency (ER) | payer OTHER ==
[2022-05-17 20:28] LABS: #Monocytes 0.4 thou/uL (0.11-0.59); #Neutrophils 2.1 thou/uL (1.40-6.50); %Basophils 0.3 % (0.0-1.0); %Eosinophils 0.8 % (0.0-10.0); %Lymphocytes 28.4 % (21.0-51.0); %Monocytes 10.6 % (0.0-10.0); %Neutrophils 59.9 % (42.0-75.0); Hemoglobin 12.1 g/dL (12.0-16.0); Mean Corpuscular HGB CONC 32.2 g/dL (32.0-36.0); Mean Corpuscular Hemoglobin 31.1 pg (27.0-31.0); Mean Corpuscular Volume 96.6 fL (78.0-98.0); Mean Platelet Volume 7.1 fL (7.4-10.4); Platelet Count 131 thou/uL (130-400); RBC Distribution Width 12.3 % (11.5-14.5); White Blood Cell (WBC) Count 3.4 thou/uL (4.8-10.8)
[2022-05-17 20:51] LABS: ALT (SGPT) 13 U/L (8-55); AST (SGOT) 19 U/L (5-34); Acetaminophen Less than 10.0 mcg/mL (10.0-30.0); Albumin 3.6 g/dL (3.5-5.0); Alcohol Less than 10 mg/dL (Less than 10); Alkaline Phosphatase 80 U/L (40-110); Anion Gap 9 mmol/L (10-20); BUN (Urea Nitrogen) 18 mg/dL (9.8-20.1); Bilirubin, Total 0.6 mg/dL (0.2-1.2); CK (CPK) 122 U/L (29-168); Calc. Creatinine Clearance 0 mL/min (70-130); Calcium 9.4 mg/dL (7.8-10.44); Carbon Dioxide 27 mmol/L (22-29); Chloride 108 mmol/L (98-107); Estimated GFR 89; Globulin 3.1 g/dL (2.4-3.5); Glucose 105 mg/dL (70-105); Potassium 3.2 mmol/L (3.5-5.1); Protein, Total 6.7 g/dL (6.0-8.3); Salicylate Less than 8.0 mg/dL (15.0-30.0); Sodium 141 mmol/L (136-145)
[2022-05-17 21:32] LABS: Bilirubin Negative (Negative); Blood, Urine Negative (Negative); Clarity Clear (Clear); Glucose, Urine (Dipstick) Normal (Negative); Ketone, Urine Negative (Negative); Leukocyte Negative Leu/uL (Negative); Nitrite Negative (Negative); Protein, Urine (Dipstick) Negative (Neg-Trace); Specific Gravity, Urine 1.027 (1.002-1.036); Urobilinogen Normal mg/dL (Less than 2); pH, Urine 6.5 (5.0-9.0)
[2022-05-17 21:41] LABS: Amphetamine Not Detected (NotDetected); Barbiturates Screen Not Detected (NotDetected); Benzodiazepine Screen Not Detected (NotDetected); Cocaine Metabolite Screen Not Detected (NotDetected); Methadone Not Detected (NotDetected); Methamphetamine Not Detected (NotDetected); Opiate Screen Not Detected (NotDetected); Oxycodone Screen Not Detected (NotDetected); Phencyclidine (PCP) Not Detected (NotDetected); THC/Cannabinoid Screen Not Detected (NotDetected); Tricyclic Screen Not Detected (NotDetected)
== END 2022-05-17 22:09 | disposition home or self-care (01) ==
LOC: ERS 19:30 → EDSEX 19:30 → ERS 22:09
DX: Z04.3 Encounter for examination and observation following other accident (principal); I10 Essential (primary) hypertension; E78.5 Hyperlipidemia, unspecified
CPT/HCPCS: 36415; 70450; 71045; 80053; 80306; 80307; 81003; 82550; 84484; 85025; 93005

== ENCOUNTER 2022-07-03 17:09 | Emergency (ER) | payer OTHER, MEDICAID ==
[2022-07-03] MEDS ORDERED: Acetaminophen 325 MG TAB ONE (19:26)
== END 2022-07-03 20:25 | disposition home or self-care (01) ==
LOC: EDSEX 17:09 → ERS 17:09
DX: G89.29 Other chronic pain (principal); M79.604 Pain in right leg; M79.605 Pain in left leg; I10 Essential (primary) hypertension; E78.5 Hyperlipidemia, unspecified
CPT/HCPCS: 99283

== ENCOUNTER 2022-07-19 16:10 | Emergency (ER) | payer MEDICARE, MEDICAID | END 2022-07-19 19:21 | disposition home or self-care (01) | LOC: ERS 16:10 | DX: G89.29 Other chronic pain (principal); I10 Essential (primary) hypertension; E78.5 Hyperlipidemia, unspecified | CPT/HCPCS: 99283 ==

== ENCOUNTER 2022-08-06 17:49 | Emergency (ER) | payer OTHER, MEDICAID | END 2022-08-06 20:20 | disposition home or self-care (01) | LOC: ERS 17:49 | DX: M79.662 Pain in left lower leg (principal); R60.0 Localized edema; I10 Essential (primary) hypertension; E78.5 Hyperlipidemia, unspecified ==

== ENCOUNTER 2022-08-08 13:53 | Emergency (ER) | payer OTHER, MEDICAID | END 2022-08-08 18:33 | disposition home or self-care (01) | LOC: ERS 13:53 | DX: R60.0 Localized edema (principal); I10 Essential (primary) hypertension; E78.5 Hyperlipidemia, unspecified; Z79.899 Other long term (current) drug therapy | CPT/HCPCS: 99284 ==

== ENCOUNTER 2022-08-17 18:08 | Emergency (ER) | payer OTHER, MEDICAID | END 2022-08-17 21:45 | disposition home or self-care (01) | LOC: ERS 18:08 | DX: G40.409 Other generalized epilepsy and epileptic syndromes, not intractable, without status epilepticus (principal); I10 Essential (primary) hypertension; E78.5 Hyperlipidemia, unspecified | CPT/HCPCS: 93005 ==

== ENCOUNTER 2022-09-11 17:14 | Emergency (ER) | payer OTHER, MEDICAID | END 2022-09-11 19:32 | disposition home or self-care (01) | LOC: ERS 17:14 | DX: Z00.00 Encounter for general adult medical examination without abnormal findings (principal); E78.5 Hyperlipidemia, unspecified; I10 Essential (primary) hypertension; Z79.899 Other long term (current) drug therapy | CPT/HCPCS: 99283 ==

== ENCOUNTER 2022-09-19 02:59 | Emergency (ER) | payer OTHER, MEDICAID | END 2022-09-19 06:40 | disposition home or self-care (01) | LOC: ERS 02:59 | DX: Z00.00 Encounter for general adult medical examination without abnormal findings (principal); I10 Essential (primary) hypertension | CPT/HCPCS: 99283 ==

== ENCOUNTER 2022-09-28 20:44 | Emergency (ER) | payer OTHER, MEDICAID | END 2022-09-29 02:45 | disposition home or self-care (01) | LOC: ERS 20:44 | DX: Z00.00 Encounter for general adult medical examination without abnormal findings (principal) | CPT/HCPCS: 99281 ==

== ENCOUNTER 2022-10-06 15:29 | Emergency (ER) | payer OTHER, MEDICAID | END 2022-10-06 15:59 | disposition home or self-care (01) | LOC: ERS 15:29 | DX: R04.0 Epistaxis (principal) | CPT/HCPCS: 99283 ==

== ENCOUNTER 2022-10-16 02:07 | Emergency (ER) | payer OTHER, MEDICAID | END 2022-10-16 06:48 | disposition home or self-care (01) | LOC: ERS 02:07 | DX: E11.40 Type 2 diabetes mellitus with diabetic neuropathy, unspecified (principal); E78.5 Hyperlipidemia, unspecified | CPT/HCPCS: 99283 ==

== ENCOUNTER 2022-10-19 02:23 | Emergency (ER) | payer OTHER, MEDICAID | END 2022-10-19 05:27 | disposition home or self-care (01) | LOC: ERS 02:23 | DX: G56.01 Carpal tunnel syndrome, right upper limb (principal); E78.5 Hyperlipidemia, unspecified | CPT/HCPCS: 99284 ==

== ENCOUNTER 2022-10-28 00:07 | Emergency (ER) | payer OTHER, MEDICAID ==
[2022-10-28] MEDS ORDERED: Lidocaine Viscous Sol 2% 15 ml UD Cup ONE (01:33)
[2022-10-28] MEDS ORDERED: Ondansetron ODT 4 MG TAB ONE (01:33)
[2022-10-28] MEDS ORDERED: Mag-Al 1200 mg/1200 mg/30 ML UDCUP ONE (01:33)
[2022-10-28 01:55] LABS: #Eosinphils 0.1 thou/uL (0.0-0.7); #Lymphocytes 0.8 thou/uL (1.20-3.40); #Monocytes 0.3 thou/uL (0.11-0.59); #Neutrophils 2.6 thou/uL (1.40-6.50); %Basophils 0.9 % (0.0-1.0); %Eosinophils 2.1 % (0.0-10.0); %Lymphocytes 20.9 % (21.0-51.0); %Monocytes 7.8 % (0.0-10.0); %Neutrophils 68.4 % (42.0-75.0); Hemoglobin 13.4 g/dL (12.0-16.0); Mean Corpuscular Hemoglobin 31.4 pg (27.0-31.0); Mean Corpuscular Volume 95.4 fl (78.0-98.0); Mean Platelet Volume 7.2 fL (7.4-10.4); Platelet Count 155 10x3/uL (130-400); RBC Distribution Width 11.9 % (11.5-14.5); Red Blood Cell (RBC) Count 4.26 mill/uL (4.20-5.40); White Blood Cell (WBC) Count 3.9 10x3/uL (4.8-10.8)
[2022-10-28 02:14] LABS: ALT (SGPT) 11 U/L (8-55); AST (SGOT) 19 U/L (5-34); Albumin 3.7 g/dL (3.5-5.0); Alkaline Phosphatase 79 U/L (40-110); Anion Gap 11 mmol/L (10-20); BUN (Urea Nitrogen) 12 mg/dL (9.8-20.1); Bilirubin, Total 0.7 mg/dL (0.2-1.2); Calc. Creatinine Clearance 0 mL/min (70-130); Calcium 9.5 mg/dL (7.8-10.44); Carbon Dioxide 26 mmol/L (22-29); Chloride 104 mmol/L (98-107); Estimated GFR 102; Globulin 3.3 g/dL (2.4-3.5); Glucose 100 mg/dL (70-105); Lipase 15 U/L (8-78); Potassium 3.5 mmol/L (3.5-5.1); Sodium 137 mmol/L (136-145)
== END 2022-10-28 02:41 | disposition home or self-care (01) ==
LOC: ERS 00:07
DX: R10.13 Epigastric pain (principal); D72.819 Decreased white blood cell count, unspecified; E78.5 Hyperlipidemia, unspecified; Z79.899 Other long term (current) drug therapy
CPT/HCPCS: 36415; 71045; 80053; 83690; 84484; 85025; 93005; 94760; Q0162

== ENCOUNTER 2022-10-31 19:09 | Emergency (ER) | payer OTHER, MEDICAID ==
[2022-10-31 20:10] LABS: #Eosinphils 0.1 thou/uL (0.0-0.7); #Lymphocytes 1.2 thou/uL (1.20-3.40); #Monocytes 0.4 thou/uL (0.11-0.59); #Neutrophils 3.4 thou/uL (1.40-6.50); %Basophils 0.3 % (0.0-1.0); %Eosinophils 2.5 % (0.0-10.0); %Lymphocytes 23.1 % (21.0-51.0); %Monocytes 7.7 % (0.0-10.0); %Neutrophils 66.4 % (42.0-75.0); Hemoglobin 12.5 g/dL (12.0-16.0); Mean Corpuscular HGB CONC 33.1 g/dL (32.0-36.0); Mean Corpuscular Hemoglobin 31.5 pg (27.0-31.0); Mean Corpuscular Volume 95.1 fl (78.0-98.0); Mean Platelet Volume 7.3 fL (7.4-10.4); Platelet Count 152 10x3/uL (130-400); RBC Distribution Width 11.9 % (11.5-14.5); Red Blood Cell (RBC) Count 3.98 mill/uL (4.20-5.40); White Blood Cell (WBC) Count 5.2 10x3/uL (4.8-10.8)
[2022-10-31 20:34] LABS: ALT (SGPT) 21 U/L (8-55); AST (SGOT) 64 U/L (5-34); Albumin 3.7 g/dL (3.5-5.0); Alkaline Phosphatase 86 U/L (40-110); Anion Gap 13 mmol/L (10-20); BUN (Urea Nitrogen) 14 mg/dL (9.8-20.1); Bilirubin, Total 0.3 mg/dL (0.2-1.2); Calc. Creatinine Clearance 0 mL/min (70-130); Calcium 9.1 mg/dL (7.8-10.44); Carbon Dioxide 26 mmol/L (22-29); Chloride 105 mmol/L (98-107); Estimated GFR 102; Globulin 3.3 g/dL (2.4-3.5); Glucose 105 mg/dL (70-105); Lipase 174 U/L (8-78); Potassium 3.5 mmol/L (3.5-5.1); Sodium 140 mmol/L (136-145)
== END 2022-10-31 22:40 | disposition home or self-care (01) ==
LOC: ERS 19:09
DX: R11.2 Nausea with vomiting, unspecified (principal); E78.5 Hyperlipidemia, unspecified; Z79.899 Other long term (current) drug therapy
CPT/HCPCS: 80053; 83690; 84484; 85025; 93005

== ENCOUNTER 2022-12-23 21:56 | Emergency (ER) | payer OTHER, MEDICAID | END 2022-12-23 23:08 | disposition home or self-care (01) | LOC: ERS 21:56 | DX: R20.2 Paresthesia of skin (principal); E78.5 Hyperlipidemia, unspecified | CPT/HCPCS: 99284 ==

== ENCOUNTER 2023-01-14 04:12 | Emergency (ER) | payer OTHER, MEDICAID ==
[2023-01-14 05:15] LABS: #Basophils 0.1 thou/uL (0.0-0.2); #Lymphocytes 1.3 thou/uL (1.20-3.40); #Monocytes 0.4 thou/uL (0.11-0.59); #Neutrophils 2.1 thou/uL (1.40-6.50); %Basophils 1.5 % (0.0-1.0); %Eosinophils 1.2 % (0.0-10.0); %Lymphocytes 32.7 % (21.0-51.0); %Monocytes 9.2 % (0.0-10.0); %Neutrophils 55.5 % (42.0-75.0); Hemoglobin 13.5 g/dL (12.0-16.0); Mean Corpuscular Hemoglobin 32.2 pg (27.0-31.0); Mean Corpuscular Volume 97.4 fl (78.0-98.0); Platelet Count 143 10x3/uL (130-400); RBC Distribution Width 12.2 % (11.5-14.5); Red Blood Cell (RBC) Count 4.19 mill/uL (4.20-5.40); White Blood Cell (WBC) Count 3.9 10x3/uL (4.8-10.8)
[2023-01-14 05:37] LABS: ALT (SGPT) 12 U/L (8-55); AST (SGOT) 20 U/L (5-34); Albumin 3.7 g/dL (3.5-5.0); Alkaline Phosphatase 87 U/L (40-110); Anion Gap 12 mmol/L (10-20); BUN (Urea Nitrogen) 16 mg/dL (9.8-20.1); Bilirubin, Total 0.4 mg/dL (0.2-1.2); Calc. Creatinine Clearance 0 mL/min (70-130); Calcium 9.3 mg/dL (7.8-10.44); Carbon Dioxide 23 mmol/L (22-29); Chloride 110 mmol/L (98-107); Estimated GFR 102; Globulin 3.6 g/dL (2.4-3.5); Glucose 79 mg/dL (70-105); Lipase 24 U/L (8-78); Potassium 3.7 mmol/L (3.5-5.1); Protein, Total 7.3 g/dL (6.0-8.3); Sodium 141 mmol/L (136-145)
== END 2023-01-14 10:07 | disposition home or self-care (01) ==
LOC: ERS 04:12
DX: R10.10 Upper abdominal pain, unspecified (principal); D72.819 Decreased white blood cell count, unspecified; E78.5 Hyperlipidemia, unspecified
CPT/HCPCS: 36415; 80053; 83690; 85025; 99284

== ENCOUNTER 2023-01-17 00:09 | Emergency (ER) | payer OTHER, MEDICAID | END 2023-01-17 04:54 | disposition home or self-care (01) | LOC: ERS 00:09 | DX: R20.2 Paresthesia of skin (principal); E78.5 Hyperlipidemia, unspecified | CPT/HCPCS: 99281 ==

== ENCOUNTER 2023-01-17 14:07 | Emergency (ER) | payer OTHER, MEDICAID ==
[2023-01-17 14:54] LABS: #Lymphocytes 1.1 thou/uL (1.20-3.40); #Monocytes 0.3 thou/uL (0.11-0.59); #Neutrophils 2.2 thou/uL (1.40-6.50); %Basophils 1.3 % (0.0-1.0); %Eosinophils 0.9 % (0.0-10.0); %Lymphocytes 29.9 % (21.0-51.0); %Monocytes 7.5 % (0.0-10.0); %Neutrophils 60.4 % (42.0-75.0); Hemoglobin 12.7 g/dL (12.0-16.0); Mean Corpuscular HGB CONC 32.8 g/dL (32.0-36.0); Mean Corpuscular Hemoglobin 31.9 pg (27.0-31.0); Mean Corpuscular Volume 97.2 fl (78.0-98.0); Mean Platelet Volume 7.9 fL (7.4-10.4); Platelet Count 133 10x3/uL (130-400); RBC Distribution Width 12.2 % (11.5-14.5); White Blood Cell (WBC) Count 3.6 10x3/uL (4.8-10.8)
[2023-01-17 15:14] LABS: ALT (SGPT) 12 U/L (8-55); AST (SGOT) 19 U/L (5-34); Albumin 3.7 g/dL (3.5-5.0); Alkaline Phosphatase 87 U/L (40-110); Anion Gap 10 mmol/L (10-20); BUN (Urea Nitrogen) 15 mg/dL (9.8-20.1); Bilirubin, Total 0.4 mg/dL (0.2-1.2); Calc. Creatinine Clearance 0 mL/min (70-130); Calcium 9.2 mg/dL (7.8-10.44); Carbon Dioxide 24 mmol/L (22-29); Chloride 112 mmol/L (98-107); Estimated GFR 102; Globulin 3.3 g/dL (2.4-3.5); Glucose 84 mg/dL (70-105); Magnesium 1.8 mg/dL (1.6-2.6); Potassium 3.7 mmol/L (3.5-5.1); Sodium 142 mmol/L (136-145)
[2023-01-17 17:54] LABS: Bacteria/HPF None Seen HPF (None Seen); Bilirubin Negative (Negative); Blood, Urine Negative (Negative); Clarity Turbid (Clear); Glucose, Urine (Dipstick) Normal (Negative); Ketone, Urine Negative (Negative); Leukocyte 75 Leu/uL (Negative); Nitrite Negative (Negative); Protein, Urine (Dipstick) Negative (Neg-Trace); RBC/HPF 0-3 HPF (0-3); Squamous Epithelial 0-3 HPF (0-3); Urobilinogen Normal mg/dL (Less than 2)
[2023-01-17 18:51] LABS: Troponin I Less than 0.010 ng/mL (< 0.028)
== END 2023-01-17 19:15 | disposition home or self-care (01) ==
LOC: ERS 14:07
DX: R20.2 Paresthesia of skin (principal); D72.819 Decreased white blood cell count, unspecified; E78.5 Hyperlipidemia, unspecified
CPT/HCPCS: 36415; 80053; 81003; 81015; 83605; 83735; 83880; 84484; 85025; 93005

== ENCOUNTER 2023-01-25 23:01 | Emergency (ER) | payer OTHER | END 2023-01-26 00:05 | disposition home or self-care (01) | LOC: ERS 23:01 | DX: J02.9 Acute pharyngitis, unspecified (principal) | CPT/HCPCS: 99281 ==

== ENCOUNTER 2023-04-04 14:26 | Emergency (ER) | payer OTHER | END 2023-04-04 15:42 | disposition home or self-care (01) | LOC: ERS 14:26 | DX: R56.9 Unspecified convulsions (principal); I10 Essential (primary) hypertension; Z79.899 Other long term (current) drug therapy | CPT/HCPCS: 93005 ==

== ENCOUNTER 2023-04-08 10:54 | Emergency (ER) | payer OTHER ==
[2023-04-08 13:36] LABS: Bacteria/HPF None Seen HPF (None Seen); Bilirubin Negative (Negative); Blood, Urine Negative (Negative); CAUTI Indications for Culture Pelvic or flank pain; Clarity Clear (Clear); Glucose, Urine (Dipstick) Normal (Negative); Ketone, Urine Negative (Negative); Leukocyte Negative Leu/uL (Negative); Nitrite Negative (Negative); Protein, Urine (Dipstick) Negative (Neg-Trace); RBC/HPF 0-3 HPF (0-3); Squamous Epithelial None Seen HPF (0-3); Urobilinogen Normal mg/dL (Less than 2); WBC/HPF 0-3 HPF (0-3)
[2023-04-08 13:39] LABS: Urine Culture Reflex No No
== END 2023-04-08 14:58 | disposition home or self-care (01) ==
LOC: ERS 10:54
DX: R53.1 Weakness (principal); I10 Essential (primary) hypertension
CPT/HCPCS: 81001; 87086; 99284

== ENCOUNTER 2023-05-09 15:40 | Emergency (ER) | payer OTHER ==
[2023-05-09] MEDS ORDERED: Ibuprofen 800 MG TAB ONE (16:56)
[2023-05-09] MEDS ORDERED: Acetaminophen 500 MG TAB ONE (16:56)
== END 2023-05-09 18:00 | disposition home or self-care (01) ==
LOC: ERS 15:40
DX: M79.604 Pain in right leg (principal); I10 Essential (primary) hypertension

== ENCOUNTER 2023-05-10 20:59 | Emergency (ER) | payer OTHER ==
[2023-05-10 21:55] LABS: Bilirubin Negative (Negative); Blood, Urine Negative (Negative); Clarity Clear (Clear); Glucose, Urine (Dipstick) Normal (Negative); Ketone, Urine Negative (Negative); Leukocyte 500 Leu/uL (Negative); Nitrite Negative (Negative); Protein, Urine (Dipstick) Negative (Neg-Trace); Specific Gravity, Urine 1.022 (1.002-1.036); pH, Urine 6.5 (5.0-9.0)
[2023-05-10 21:56] LABS: CAUTI Indications for Culture Dysuria,urgency,freq; RBC/HPF 0-3 HPF (0-3); Renal Epithelial 0-3 HPF (None Seen); Squamous Epithelial 0-3 HPF (0-3)
[2023-05-10 22:01] LABS: Bacteria/HPF Rare-Few HPF (None Seen)
[2023-05-10 22:03] LABS: Urine Culture Reflex No No
[2023-05-10 22:16] LABS: Hemoglobin 12.7 g/dL (12.0-16.0); Mean Corpuscular HGB CONC 32.6 g/dL (32.0-36.0); Mean Corpuscular Hemoglobin 30.7 pg (27.0-31.0); Mean Corpuscular Volume 94.2 fl (78.0-98.0); RBC Distribution Width 12.7 % (11.5-14.5); Red Blood Cell (RBC) Count 4.14 mill/uL (4.20-5.40); White Blood Cell (WBC) Count 3.9 10x3/uL (4.8-10.8)
[2023-05-10 22:17] LABS: #Monocytes 0.3 thou/uL (0.11-0.59); %Basophils 0.8 % (0.0-1.0); %Lymphocytes 38.4 % (21.0-51.0); %Monocytes 8.8 % (0.0-10.0); Mean Platelet Volume 9.6 fL (7.4-10.4); Platelet Count 172 10x3/uL (130-400)
[2023-05-10 22:39] LABS: Anion Gap 7 mmol/L (10-20); BUN (Urea Nitrogen) 13 mg/dL (9.8-20.1); Carbon Dioxide 28 mmol/L (22-29); Chloride 108 mmol/L (98-107); Potassium 3.7 mmol/L (3.5-5.1); Sodium 139 mmol/L (136-145)
[2023-05-10 22:40] LABS: Albumin 3.7 g/dL (3.5-5.0); Bilirubin, Total 0.4 mg/dL (0.2-1.2); Calc. Creatinine Clearance 0 mL/min (70-130); Estimated GFR 92; Glucose 95 mg/dL (70-105)
[2023-05-10 22:41] LABS: ALT (SGPT) 13 U/L (8-55); AST (SGOT) 22 U/L (5-34); Alkaline Phosphatase 95 U/L (40-110); Globulin 3.3 g/dL (2.4-3.5)
== END 2023-05-10 22:50 | disposition home or self-care (01) ==
LOC: ERS 20:59
DX: N39.0 Urinary tract infection, site not specified (principal); R55 Syncope and collapse
CPT/HCPCS: 36415; 80053; 81001; 84484; 85025; 93005

== ENCOUNTER 2023-05-18 06:19 | Emergency (ER) | payer OTHER, MEDICAID ==
[2023-05-18 07:29] LABS: #Monocytes 0.3 thou/uL (0.11-0.59); #Neutrophils 1.5 thou/uL (1.40-6.50); %Basophils 0.3 % (0.0-1.0); %Lymphocytes 36.2 % (21.0-51.0); %Monocytes 10.6 % (0.0-10.0); %Neutrophils 51.6 % (42.0-75.0); Hemoglobin 12.6 g/dL (12.0-16.0); Mean Corpuscular HGB CONC 33.2 g/dL (32.0-36.0); Mean Corpuscular Hemoglobin 30.7 pg (27.0-31.0); Mean Corpuscular Volume 92.2 fl (78.0-98.0); Mean Platelet Volume 9.7 fL (7.4-10.4); Platelet Count 142 10x3/uL (130-400); RBC Distribution Width 12.5 % (11.5-14.5); Red Blood Cell (RBC) Count 4.11 mill/uL (4.20-5.40); White Blood Cell (WBC) Count 2.9 10x3/uL (4.8-10.8)
[2023-05-18 07:54] LABS: ALT (SGPT) 11 U/L (8-55); AST (SGOT) 20 U/L (5-34); Albumin 3.6 g/dL (3.5-5.0); Alkaline Phosphatase 95 U/L (40-110); Anion Gap 13 mmol/L (10-20); BUN (Urea Nitrogen) 11 mg/dL (9.8-20.1); Bilirubin, Total 0.6 mg/dL (0.2-1.2); Calc. Creatinine Clearance 0 mL/min (70-130); Calcium 9.4 mg/dL (7.8-10.44); Carbon Dioxide 24 mmol/L (22-29); Chloride 109 mmol/L (98-107); Estimated GFR 99; Globulin 3.2 g/dL (2.4-3.5); Glucose 72 mg/dL (70-105); Magnesium 1.7 mg/dL (1.6-2.6); Potassium 3.5 mmol/L (3.5-5.1); Protein, Total 6.8 g/dL (6.0-8.3); Sodium 142 mmol/L (136-145)
== END 2023-05-18 09:25 | disposition home or self-care (01) ==
LOC: ERS 06:19
DX: R20.2 Paresthesia of skin (principal); I10 Essential (primary) hypertension
CPT/HCPCS: 36415; 70450; 80053; 83735; 83880; 84443; 84484; 85025

== ENCOUNTER 2023-05-20 02:50 | Emergency (ER) | payer OTHER, MEDICAID | END 2023-05-20 03:40 | disposition home or self-care (01) | LOC: ERS 02:50 | DX: M25.561 Pain in right knee (principal); I10 Essential (primary) hypertension | CPT/HCPCS: 99283 ==

== ENCOUNTER 2023-05-26 04:09 | Emergency (ER) | payer OTHER, MEDICAID ==
[2023-05-26] MEDS ORDERED: Acetaminophen 500 MG TAB ONE (04:55)
== END 2023-05-26 05:07 | disposition home or self-care (01) ==
LOC: ERS 04:09
DX: Z00.00 Encounter for general adult medical examination without abnormal findings (principal); I10 Essential (primary) hypertension
CPT/HCPCS: 99283

== ENCOUNTER 2023-05-27 08:31 | Emergency (ER) | payer OTHER, MEDICAID ==
[2023-05-27] MEDS ORDERED: Mupirocin 2% Ointment 22 GM Tube TOP SCH (09:00)
== END 2023-05-27 09:15 | disposition home or self-care (01) ==
LOC: ERS 08:31
DX: S60.512A Abrasion of left hand, initial encounter (principal); I10 Essential (primary) hypertension; W26.8XXA Contact with other sharp object(s), not elsewhere classified, initial encounter
CPT/HCPCS: 99282

== ENCOUNTER 2023-05-31 06:38 | Emergency (ER) | payer OTHER, MEDICAID ==
[2023-05-31] MEDS ORDERED: Acetaminophen 500 MG TAB ONE (07:17)
== END 2023-05-31 08:05 | disposition home or self-care (01) ==
LOC: ERS 06:38
DX: M17.0 Bilateral primary osteoarthritis of knee (principal); I10 Essential (primary) hypertension

== ENCOUNTER 2023-06-07 02:20 | Emergency (ER) | payer OTHER | END 2023-06-07 02:46 | disposition home or self-care (01) | LOC: ERS 02:20 | DX: M79.604 Pain in right leg (principal); I10 Essential (primary) hypertension | CPT/HCPCS: 99283 ==

== ENCOUNTER 2023-06-18 12:19 | Emergency (ER) | payer MEDICAID, OTHER | END 2023-06-18 13:04 | disposition home or self-care (01) | LOC: ERS 12:19 | DX: Z71.1 Person with feared health complaint in whom no diagnosis is made (principal); I10 Essential (primary) hypertension; Z79.899 Other long term (current) drug therapy | CPT/HCPCS: 99283 ==

== ENCOUNTER 2023-06-19 11:02 | Emergency (ER) | payer OTHER ==
[2023-06-19 11:29] LABS: #Monocytes 0.3 thou/uL (0.11-0.59); #Neutrophils 2.7 thou/uL (1.40-6.50); %Basophils 0.5 % (0.0-1.0); %Eosinophils 0.5 % (0.0-10.0); %Lymphocytes 26.7 % (21.0-51.0); %Monocytes 7.7 % (0.0-10.0); %Neutrophils 64.4 % (42.0-75.0); Hematocrit 38.5 % (36.0-47.0); Hemoglobin 12.4 g/dL (12.0-16.0); Mean Corpuscular HGB CONC 32.2 g/dL (32.0-36.0); Mean Corpuscular Hemoglobin 30.4 pg (27.0-31.0); Mean Corpuscular Volume 94.4 fl (78.0-98.0); Mean Platelet Volume 9.5 fL (7.4-10.4); Platelet Count 175 10x3/uL (130-400); RBC Distribution Width 13.2 % (11.5-14.5); Red Blood Cell (RBC) Count 4.08 mill/uL (4.20-5.40); White Blood Cell (WBC) Count 4.2 10x3/uL (4.8-10.8)
[2023-06-19 11:45] LABS: ALT (SGPT) 10 U/L (8-55); AST (SGOT) 18 U/L (5-34); Albumin 3.7 g/dL (3.5-5.0); Alkaline Phosphatase 92 U/L (40-110); Anion Gap 13 mmol/L (10-20); BUN (Urea Nitrogen) 10 mg/dL (9.8-20.1); Bilirubin, Total 0.7 mg/dL (0.2-1.2); Calc. Creatinine Clearance 0 mL/min (70-130); Calcium 9.5 mg/dL (7.8-10.44); Carbon Dioxide 24 mmol/L (22-29); Chloride 106 mmol/L (98-107); Estimated GFR 103; Globulin 3.3 g/dL (2.4-3.5); Glucose 91 mg/dL (70-105); Potassium 3.8 mmol/L (3.5-5.1); Sodium 139 mmol/L (136-145)
[2023-06-19 11:49] LABS: Troponin I Less than 0.010 ng/mL (< 0.028)
== END 2023-06-19 14:07 | disposition home or self-care (01) ==
LOC: ERS 11:02
DX: R07.9 Chest pain, unspecified (principal); M79.10 Myalgia, unspecified site; I10 Essential (primary) hypertension
CPT/HCPCS: 36415; 71045; 80053; 83880; 84443; 84484; 85025; 93005

== ENCOUNTER 2023-06-30 22:12 | Emergency (ER) | payer OTHER | END 2023-07-01 00:27 | disposition home or self-care (01) | LOC: ERS 22:12 | DX: Z71.1 Person with feared health complaint in whom no diagnosis is made (principal) | CPT/HCPCS: 93005 ==

== ENCOUNTER 2023-07-29 16:09 | Emergency (ER) | payer OTHER ==
[2023-07-29] MEDS ORDERED: Ketorolac Tromethamine 30 MG/ML VIAL ONE (17:00)
== END 2023-07-29 17:32 | disposition home or self-care (01) ==
LOC: ERS 16:09
DX: R51.9 Headache, unspecified (principal); I10 Essential (primary) hypertension; Z79.899 Other long term (current) drug therapy
CPT/HCPCS: 96372; 99283; J1885

== ENCOUNTER 2023-08-03 10:40 | Emergency (ER) | payer OTHER | END 2023-08-03 11:50 | disposition home or self-care (01) | LOC: ERS 10:40 | DX: Z00.00 Encounter for general adult medical examination without abnormal findings (principal) | CPT/HCPCS: 99283 ==

== ENCOUNTER 2023-08-04 18:39 | Emergency (ER) | payer OTHER | END 2023-08-04 19:34 | disposition home or self-care (01) | LOC: ERS 18:39 | DX: R20.2 Paresthesia of skin (principal); I10 Essential (primary) hypertension | CPT/HCPCS: 99283 ==

== ENCOUNTER 2023-08-06 02:21 | Emergency (ER) | payer OTHER | END 2023-08-06 04:51 | disposition home or self-care (01) | LOC: ERS 02:21 | DX: M79.662 Pain in left lower leg (principal); I10 Essential (primary) hypertension ==

== ENCOUNTER 2023-08-08 02:20 | Emergency (ER) | payer OTHER | END 2023-08-08 06:57 | disposition home or self-care (01) | LOC: ERS 02:20 | DX: R20.2 Paresthesia of skin (principal); I10 Essential (primary) hypertension | CPT/HCPCS: 99283 ==

== ENCOUNTER 2023-08-11 18:29 | Emergency (ER) | payer OTHER, MEDICAID ==
[2023-08-11 21:33] LABS: Anion Gap 12 mmol/L (10-20); BUN (Urea Nitrogen) 20 mg/dL (9.8-20.1); Calc. Creatinine Clearance 0 mL/min (70-130); Calcium 9.7 mg/dL (7.8-10.44); Carbon Dioxide 28 mmol/L (22-29); Chloride 105 mmol/L (98-107); Estimated GFR 90; Glucose 94 mg/dL (70-105); Potassium 3.7 mmol/L (3.5-5.1); Sodium 141 mmol/L (136-145); Troponin I 0.011 ng/mL (< 0.028)
== END 2023-08-11 22:06 | disposition home or self-care (01) ==
LOC: ERS 18:29
DX: M79.605 Pain in left leg (principal); M79.604 Pain in right leg
CPT/HCPCS: 36415; 80048; 83880; 84484; 85379; 99283

== ENCOUNTER 2023-08-13 00:17 | Emergency (ER) | payer OTHER, MEDICAID | END 2023-08-13 00:48 | disposition home or self-care (01) | LOC: ERS 00:17 | DX: Z00.00 Encounter for general adult medical examination without abnormal findings (principal); I10 Essential (primary) hypertension; Z79.899 Other long term (current) drug therapy | CPT/HCPCS: 99283 ==

== ENCOUNTER 2023-08-14 20:01 | Emergency (ER) | payer OTHER, MEDICAID | END 2023-08-14 20:51 | disposition home or self-care (01) | LOC: ERS 20:01 | DX: Z00.00 Encounter for general adult medical examination without abnormal findings (principal); I10 Essential (primary) hypertension; Z79.899 Other long term (current) drug therapy | CPT/HCPCS: 99283 ==

== ENCOUNTER 2023-08-18 20:58 | Emergency (ER) | payer OTHER | END 2023-08-18 22:11 | disposition home or self-care (01) | LOC: ERS 20:58 | DX: Z00.00 Encounter for general adult medical examination without abnormal findings (principal); I10 Essential (primary) hypertension | CPT/HCPCS: 99282 ==

== ENCOUNTER 2023-08-19 18:04 | Emergency (ER) | payer OTHER | END 2023-08-19 18:50 | disposition home or self-care (01) | LOC: ERS 18:04 | DX: M79.605 Pain in left leg (principal); M79.604 Pain in right leg; I10 Essential (primary) hypertension ==

== ENCOUNTER 2023-08-22 13:05 | Emergency (ER) | payer OTHER ==
[2023-08-22] MEDS ORDERED: Dexamethasone 10 MG/ML VIAL ONE (14:22)
[2023-08-22] MEDS ORDERED: Ibuprofen 800 MG TAB ONE (14:23)
== END 2023-08-22 14:54 | disposition home or self-care (01) ==
LOC: ERS 13:05
DX: J02.9 Acute pharyngitis, unspecified (principal); M79.605 Pain in left leg; M79.604 Pain in right leg; G89.29 Other chronic pain; I10 Essential (primary) hypertension
CPT/HCPCS: 99283; J1100

== ENCOUNTER 2023-08-31 18:23 | Emergency (ER) | payer OTHER ==
[2023-08-31 19:49] LABS: #Eosinphils 0.1 thou/uL (0.0-0.7); #Monocytes 0.5 thou/uL (0.11-0.59); #Neutrophils 2.2 thou/uL (1.40-6.50); %Basophils 0.9 % (0.0-1.0); %Eosinophils 1.6 % (0.0-10.0); %Lymphocytes 36.4 % (21.0-51.0); %Monocytes 10.6 % (0.0-10.0); Hematocrit 37.4 % (36.0-47.0); Hemoglobin 12.3 g/dL (12.0-16.0); Mean Corpuscular HGB CONC 32.9 g/dL (32.0-36.0); Mean Corpuscular Hemoglobin 31.3 pg (27.0-31.0); Mean Corpuscular Volume 95.2 fl (78.0-98.0); Mean Platelet Volume 9.4 fL (7.4-10.4); Platelet Count 185 10x3/uL (130-400); RBC Distribution Width 12.6 % (11.5-14.5); Red Blood Cell (RBC) Count 3.93 mill/uL (4.20-5.40); White Blood Cell (WBC) Count 4.3 10x3/uL (4.8-10.8)
[2023-08-31 20:15] LABS: ALT (SGPT) 12 U/L (8-55); AST (SGOT) 20 U/L (5-34); Albumin 4.1 g/dL (3.5-5.0); Alkaline Phosphatase 93 U/L (40-110); Anion Gap 13 mmol/L (10-20); BUN (Urea Nitrogen) 14 mg/dL (9.8-20.1); Bilirubin, Total 0.4 mg/dL (0.2-1.2); Calc. Creatinine Clearance 0 mL/min (70-130); Calcium 9.2 mg/dL (7.8-10.44); Carbon Dioxide 25 mmol/L (22-29); Chloride 104 mmol/L (98-107); Estimated GFR 102; Glucose 87 mg/dL (70-105); Potassium 3.5 mmol/L (3.5-5.1); Protein, Total 7.1 g/dL (6.0-8.3); Sodium 138 mmol/L (136-145)
== END 2023-08-31 20:38 | disposition home or self-care (01) ==
LOC: ERS 18:23
DX: R60.9 Edema, unspecified (principal); I10 Essential (primary) hypertension
CPT/HCPCS: 36415; 71045; 80053; 83880; 85025; 93005

== ENCOUNTER 2023-09-02 01:09 | Emergency (ER) | payer OTHER | END 2023-09-02 01:31 | disposition home or self-care (01) | LOC: ERS 01:09 | DX: R20.2 Paresthesia of skin (principal); I10 Essential (primary) hypertension | CPT/HCPCS: 99283 ==

== ENCOUNTER 2023-09-04 15:24 | Emergency (ER) | payer OTHER, MEDICAID | END 2023-09-04 16:31 | disposition left against medical advice (07) | LOC: ERS 15:24 | DX: Z53.21 Procedure and treatment not carried out due to patient leaving prior to being seen by health care provider (principal) ==

== ENCOUNTER 2023-09-10 19:19 | Emergency (ER) | payer OTHER, MEDICAID | END 2023-09-10 20:01 | disposition home or self-care (01) | LOC: ERS 19:19 | DX: R10.9 Unspecified abdominal pain (principal); I10 Essential (primary) hypertension | CPT/HCPCS: 99283 ==

== ENCOUNTER 2023-09-13 17:37 | Emergency (ER) | payer OTHER ==
[2023-09-13] MEDS ORDERED: Ibuprofen 200 MG TAB ONE (18:52)
== END 2023-09-13 19:11 | disposition home or self-care (01) ==
LOC: ERS 17:37
DX: G89.29 Other chronic pain (principal); M79.661 Pain in right lower leg; M25.531 Pain in right wrist; R20.2 Paresthesia of skin; I10 Essential (primary) hypertension
CPT/HCPCS: 99283

== ENCOUNTER 2023-09-20 11:45 | Emergency (ER) | payer OTHER, MEDICAID | END 2023-09-20 12:11 | disposition home or self-care (01) | LOC: ERS 11:45 | DX: B34.9 Viral infection, unspecified (principal); I10 Essential (primary) hypertension | CPT/HCPCS: 99283 ==

== ENCOUNTER 2023-09-22 05:47 | Emergency (ER) | payer OTHER ==
[2023-09-22] MEDS ORDERED: Ibuprofen 800 MG TAB ONE (06:01)
== END 2023-09-22 06:17 | disposition home or self-care (01) ==
LOC: ERS 05:47
DX: M79.605 Pain in left leg (principal); M79.604 Pain in right leg; I10 Essential (primary) hypertension
CPT/HCPCS: 99283

== ENCOUNTER 2023-09-22 11:30 | Emergency (ER) | payer OTHER | END 2023-09-22 13:08 | disposition home or self-care (01) | LOC: ERS 11:30 | DX: J02.9 Acute pharyngitis, unspecified (principal); I10 Essential (primary) hypertension | CPT/HCPCS: 99283 ==

== ENCOUNTER 2023-09-22 18:32 | Emergency (ER) | payer OTHER | END 2023-09-22 19:32 | disposition home or self-care (01) | LOC: ERS 18:32 | DX: M79.604 Pain in right leg (principal); M79.605 Pain in left leg | CPT/HCPCS: 99283 ==

== ENCOUNTER 2023-09-25 15:12 | Emergency (ER) | payer OTHER ==
[2023-09-25] MEDS ORDERED: Ketorolac Tromethamine 30 MG/ML VIAL ONE (16:31)
== END 2023-09-25 16:46 | disposition home or self-care (01) ==
LOC: ERS 15:12
DX: M79.604 Pain in right leg (principal); M79.605 Pain in left leg; I10 Essential (primary) hypertension
CPT/HCPCS: 96372; 99283; J1885

== ENCOUNTER 2023-09-27 02:16 | Emergency (ER) | payer OTHER ==
[2023-09-27] MEDS ORDERED: Acetaminophen 500 MG TAB ONE (02:37)
[2023-09-27 03:41] LABS: Bacteria/HPF None Seen HPF (None Seen); Bilirubin Negative (Negative); Blood, Urine 1+ (Negative); CAUTI Indications for Culture Pelvic or flank pain; Clarity Clear (Clear); Glucose, Urine (Dipstick) Normal (Negative); Ketone, Urine Negative (Negative); Leukocyte 25 Leu/uL (Negative); Nitrite Negative (Negative); Protein, Urine (Dipstick) 10 mg/dL (Neg-Trace); Specific Gravity, Urine 1.032 (1.002-1.036); Squamous Epithelial 0-3 HPF (0-3); Urobilinogen Normal mg/dL (Less than 2); WBC/HPF 0-3 HPF (0-3); pH, Urine 5.5 (5.0-9.0)
[2023-09-27 03:52] LABS: Urine Culture Reflex No No
== END 2023-09-27 04:24 | disposition home or self-care (01) ==
LOC: ERS 02:16
DX: R31.9 Hematuria, unspecified (principal); G89.29 Other chronic pain; M79.605 Pain in left leg; M79.604 Pain in right leg; I10 Essential (primary) hypertension; Z79.899 Other long term (current) drug therapy
CPT/HCPCS: 81001

== ENCOUNTER 2023-09-27 22:40 | Emergency (ER) | payer OTHER | END 2023-09-27 23:06 | disposition home or self-care (01) | LOC: ERS 22:40 | DX: Z00.00 Encounter for general adult medical examination without abnormal findings (principal); I10 Essential (primary) hypertension | CPT/HCPCS: 36416; 81001; 99282 ==

== ENCOUNTER 2023-10-02 06:24 | Emergency (ER) | payer OTHER ==
[2023-10-02] MEDS ORDERED: Ibuprofen 200 MG TAB ONE (06:40)
== END 2023-10-02 06:49 | disposition home or self-care (01) ==
LOC: ERS 06:24
DX: Z00.00 Encounter for general adult medical examination without abnormal findings (principal); I10 Essential (primary) hypertension
CPT/HCPCS: 99282

== ENCOUNTER 2023-10-07 04:14 | Emergency (ER) | payer OTHER, MEDICAID ==
[2023-10-07 04:53] LABS: #Eosinphils 0.1 thou/uL (0.0-0.7); #Monocytes 0.3 thou/uL (0.11-0.59); #Neutrophils 2.1 thou/uL (1.40-6.50); %Basophils 0.5 % (0.0-1.0); %Eosinophils 1.4 % (0.0-10.0); %Lymphocytes 31.6 % (21.0-51.0); %Neutrophils 58.5 % (42.0-75.0); Hematocrit 37.9 % (36.0-47.0); Hemoglobin 12.4 g/dL (12.0-16.0); Mean Corpuscular HGB CONC 32.7 g/dL (32.0-36.0); Mean Corpuscular Hemoglobin 30.8 pg (27.0-31.0); Mean Corpuscular Volume 94.3 fl (78.0-98.0); Mean Platelet Volume 9.4 fL (7.4-10.4); Platelet Count 177 10x3/uL (130-400); RBC Distribution Width 12.6 % (11.5-14.5); Red Blood Cell (RBC) Count 4.02 mill/uL (4.20-5.40); White Blood Cell (WBC) Count 3.6 10x3/uL (4.8-10.8)
[2023-10-07 05:19] LABS: Troponin I Less than 0.010 ng/mL (< 0.028)
[2023-10-07 05:20] LABS: ALT (SGPT) 12 U/L (8-55); AST (SGOT) 20 U/L (5-34); Albumin 3.6 g/dL (3.5-5.0); Alkaline Phosphatase 88 U/L (40-110); Anion Gap 13 mmol/L (10-20); BUN (Urea Nitrogen) 17 mg/dL (9.8-20.1); Bilirubin, Total 0.6 mg/dL (0.2-1.2); Calc. Creatinine Clearance 0 mL/min (70-130); Calcium 9.3 mg/dL (7.8-10.44); Carbon Dioxide 23 mmol/L (22-29); Chloride 108 mmol/L (98-107); Estimated GFR 103; Globulin 3.3 g/dL (2.4-3.5); Glucose 87 mg/dL (70-105); Lipase 25 U/L (8-78); Magnesium 2.3 mg/dL (1.6-2.6); Potassium 3.6 mmol/L (3.5-5.1); Protein, Total 6.9 g/dL (6.0-8.3); Sodium 140 mmol/L (136-145)
[2023-10-07 05:54] LABS: SARS-CoV-2 NAA Rapid Test Not Detected (NotDetected)
== END 2023-10-07 06:12 | disposition home or self-care (01) ==
LOC: ERS 04:14
DX: G89.29 Other chronic pain (principal); M79.605 Pain in left leg; M79.604 Pain in right leg; I10 Essential (primary) hypertension; Z79.899 Other long term (current) drug therapy
CPT/HCPCS: 0240U; 71045; 80053; 83690; 83735; 83880; 84484; 85025; 93005; 36415

== ENCOUNTER 2023-10-11 04:22 | Emergency (ER) | payer OTHER, MEDICAID | END 2023-10-11 05:01 | disposition home or self-care (01) | LOC: ERS 04:22 | DX: L85.0 Acquired ichthyosis (principal); I10 Essential (primary) hypertension | CPT/HCPCS: 99282 ==

== ENCOUNTER 2023-10-15 10:05 | Emergency (ER) | payer OTHER ==
[2023-10-15 11:55] LABS: #Monocytes 0.3 thou/uL (0.11-0.59); #Neutrophils 1.3 thou/uL (1.40-6.50); %Basophils 0.6 % (0.0-1.0); %Eosinophils 0.3 % (0.0-10.0); %Monocytes 10.6 % (0.0-10.0); %Neutrophils 41.5 % (42.0-75.0); Hematocrit 39.9 % (36.0-47.0); Hemoglobin 12.8 g/dL (12.0-16.0); Mean Corpuscular HGB CONC 32.1 g/dL (32.0-36.0); Mean Corpuscular Hemoglobin 30.5 pg (27.0-31.0); Mean Platelet Volume 9.4 fL (7.4-10.4); Platelet Count 166 10x3/uL (130-400); RBC Distribution Width 12.6 % (11.5-14.5); White Blood Cell (WBC) Count 3.2 10x3/uL (4.8-10.8)
[2023-10-15 12:32] LABS: Anion Gap 13 mmol/L (10-20); BUN (Urea Nitrogen) 18 mg/dL (9.8-20.1); Calc. Creatinine Clearance 0 mL/min (70-130); Calcium 9.1 mg/dL (7.8-10.44); Carbon Dioxide 26 mmol/L (22-29); Chloride 105 mmol/L (98-107); Estimated GFR 103; Glucose 75 mg/dL (70-105); Magnesium 1.8 mg/dL (1.6-2.6); Potassium 3.6 mmol/L (3.5-5.1); Sodium 140 mmol/L (136-145)
== END 2023-10-15 12:58 | disposition home or self-care (01) ==
LOC: ERS 10:05
DX: R20.2 Paresthesia of skin (principal); I10 Essential (primary) hypertension
CPT/HCPCS: 36415; 80048; 83735; 85025; 93005

== ENCOUNTER 2023-10-25 07:39 | Emergency (ER) | payer OTHER ==
[2023-10-25] MEDS ORDERED: Ondansetron ODT 4 MG TAB ONE (08:24)
== END 2023-10-25 08:25 | disposition home or self-care (01) ==
LOC: ERS 07:39
DX: R19.7 Diarrhea, unspecified (principal); R11.2 Nausea with vomiting, unspecified; I10 Essential (primary) hypertension
CPT/HCPCS: 99284; Q0162

== ENCOUNTER 2023-11-04 02:11 | Emergency (ER) | payer OTHER, MEDICAID ==
[2023-11-04] MEDS ORDERED: Acetaminophen 500 MG TAB ONE (03:03)
== END 2023-11-04 03:35 | disposition home or self-care (01) ==
LOC: ERS 02:11
DX: M79.604 Pain in right leg (principal); I10 Essential (primary) hypertension

== ENCOUNTER 2023-11-04 16:16 | Emergency (ER) | payer OTHER, MEDICAID | END 2023-11-04 16:45 | disposition home or self-care (01) | LOC: ERS 16:16 | DX: R60.0 Localized edema (principal); Z76.0 Encounter for issue of repeat prescription; I10 Essential (primary) hypertension | CPT/HCPCS: 99283 ==

== ENCOUNTER 2023-11-07 03:31 | Emergency (ER) | payer OTHER, MEDICAID ==
[2023-11-07] MEDS ORDERED: Ibuprofen 800 MG TAB ONE (04:38)
[2023-11-07] MEDS ORDERED: Furosemide 40 MG TAB ONE (04:40)
== END 2023-11-07 05:02 | disposition home or self-care (01) ==
LOC: ERS 03:31
DX: G89.29 Other chronic pain (principal); M79.606 Pain in leg, unspecified; I10 Essential (primary) hypertension
CPT/HCPCS: 36416; 99282

== ENCOUNTER 2023-11-17 13:49 | Outpatient (CLI) | payer OTHER | END 2023-11-17 13:50 | disposition home or self-care (01) | LOC: ULT 13:49 | PROVIDERS: ATTEND Internal Medicine Nephrology | DX: N18.1 Chronic kidney disease, stage 1 (principal) | CPT/HCPCS: 76770 ==

== ENCOUNTER 2023-11-21 00:21 | Emergency (ER) | payer OTHER | END 2023-11-21 02:51 | disposition home or self-care (01) | LOC: ERS 00:21 | DX: R20.2 Paresthesia of skin (principal); I10 Essential (primary) hypertension; Z55.6 Problems related to health literacy | CPT/HCPCS: 99283 ==

== ENCOUNTER 2023-11-26 18:51 | Emergency (ER) | payer MEDICAID, OTHER ==
[2023-11-26] MEDS ORDERED: Ibuprofen 200 MG TAB ONE (21:02)
== END 2023-11-26 21:17 | disposition home or self-care (01) ==
LOC: ERS 18:51
DX: G89.29 Other chronic pain (principal); R20.2 Paresthesia of skin; M79.606 Pain in leg, unspecified; I10 Essential (primary) hypertension
CPT/HCPCS: 99283

== ENCOUNTER 2023-11-30 19:49 | Emergency (ER) | payer OTHER, MEDICAID ==
[2023-11-30] MEDS ORDERED: Ibuprofen 200 MG TAB ONE (20:45)
== END 2023-11-30 21:37 | disposition home or self-care (01) ==
LOC: ERS 19:49
DX: G89.29 Other chronic pain (principal); M79.661 Pain in right lower leg; I10 Essential (primary) hypertension
CPT/HCPCS: 99283

== ENCOUNTER 2023-12-03 18:20 | Emergency (ER) | payer OTHER, MEDICAID ==
[2023-12-03 19:23] LABS: Hematocrit 35.7 % (36.0-47.0); Hemoglobin 11.9 g/dL (12.0-16.0); Manual Diff?? YES; Mean Corpuscular HGB CONC 33.3 g/dL (32.0-36.0); Mean Corpuscular Hemoglobin 30.2 pg (27.0-31.0); Mean Corpuscular Volume 90.6 fl (78.0-98.0); Mean Platelet Volume 10.4 fL (7.4-10.4); Platelet Count 158 10x3/uL (130-400); RBC Distribution Width 13.2 % (11.5-14.5); Red Blood Cell (RBC) Count 3.94 mill/uL (4.20-5.40); White Blood Cell (WBC) Count 2.7 10x3/uL (4.8-10.8)
[2023-12-03 19:31] LABS: Delete Auto Diff?? YES
[2023-12-03 19:39] LABS: Anion Gap 13 mmol/L (10-20); BUN (Urea Nitrogen) 19 mg/dL (9.8-20.1); Calc. Creatinine Clearance 0 mL/min (70-130); Calcium 9.3 mg/dL (7.8-10.44); Carbon Dioxide 24 mmol/L (22-29); Chloride 101 mmol/L (98-107); Estimated GFR 79; Glucose 101 mg/dL (70-105); Potassium 3.5 mmol/L (3.5-5.1); Sodium 134 mmol/L (136-145)
[2023-12-03 19:52] LABS: Band 2 % (5-11); CellaVision Operator ID LAB.MJL; Eosinophils 4 % (0-10); Large Platelets 5.4 % (0-5); Lymphocytes 25 % (21-51); Monocytes 13 % (0-10); Neutrophil 54 % (42-75); Ovalocytes SLIGHT = 2-5 cells HPF (0-1); Platelet Adequacy Comment Platelets Normal; Poikilocytosis SLIGHT = 6-15 cells HPF (0-5); Polychromasia SLIGHT = 2-3 cells HPF (0-2); Reactive Lymphocytes 4 % (0-10); Total Cell Count 56
[2023-12-03 22:31] LABS: Actual Bicarbonate (HCO3v) 24.9 mEq/L (22-28); Base Excess -0.6 mEq/L (-2.0 to +3.0); Calcium, Ionized (venous) 1.18 mmol/L (1.16-1.32); Chloride (VBG) 98 mmol/L (98-106); Hematocrit-VBG 38 % (36.0-47.0); Hemoglobin (Hb) 12.8 g/dL (11.7-16.0); Potassium (VBG) 3.56 mmol/L (3.70-5.30); Sodium 135 mmol/L (133-146); pH (venous) 7.367 (7.32-7.43)
== END 2023-12-03 23:47 | disposition home or self-care (01) ==
LOC: ERS 18:20
DX: R53.83 Other fatigue (principal); I10 Essential (primary) hypertension; W19.XXXA Unspecified fall, initial encounter; Z79.899 Other long term (current) drug therapy
CPT/HCPCS: 36415; 80048; 82805; 85025; 93005

== ENCOUNTER 2023-12-04 16:32 | Emergency (ER) | payer OTHER | END 2023-12-04 17:58 | disposition home or self-care (01) | LOC: ERS 16:32 | DX: L98.7 Excessive and redundant skin and subcutaneous tissue (principal); Z00.00 Encounter for general adult medical examination without abnormal findings; I10 Essential (primary) hypertension; Z55.6 Problems related to health literacy | CPT/HCPCS: 99283 ==

== ENCOUNTER 2023-12-07 09:18 | Emergency (ER) | payer OTHER, MEDICAID ==
[2023-12-07 09:52] LABS: #Eosinphils 0.1 thou/uL (0.0-0.7); #Monocytes 0.5 thou/uL (0.11-0.59); #Neutrophils 1.5 thou/uL (1.40-6.50); %Basophils 0.7 % (0.0-1.0); %Eosinophils 3.3 % (0.0-10.0); %Lymphocytes 19.6 % (21.0-51.0); %Monocytes 18.5 % (0.0-10.0); %Neutrophils 57.2 % (42.0-75.0); Hematocrit 37.3 % (36.0-47.0); Hemoglobin 11.3 g/dL (12.0-16.0); Mean Corpuscular HGB CONC 30.3 g/dL (32.0-36.0); Mean Corpuscular Hemoglobin 30.1 pg (27.0-31.0); Mean Corpuscular Volume 99.5 fl (78.0-98.0); Mean Platelet Volume 9.5 fL (7.4-10.4); Platelet Count 141 10x3/uL (130-400); RBC Distribution Width 13.7 % (11.5-14.5); Red Blood Cell (RBC) Count 3.75 mill/uL (4.20-5.40); White Blood Cell (WBC) Count 2.7 10x3/uL (4.8-10.8)
[2023-12-07 10:13] LABS: ALT (SGPT) 25 U/L (8-55); AST (SGOT) 30 U/L (5-34); Albumin 3.5 g/dL (3.5-5.0); Alkaline Phosphatase 60 U/L (40-110); Anion Gap 11 mmol/L (10-20); BUN (Urea Nitrogen) 17 mg/dL (9.8-20.1); Bilirubin, Total 0.5 mg/dL (0.2-1.2); Calc. Creatinine Clearance 0 mL/min (70-130); Calcium 8.8 mg/dL (7.8-10.44); Carbon Dioxide 23 mmol/L (22-29); Chloride 105 mmol/L (98-107); Estimated GFR 90; Globulin 2.6 g/dL (2.4-3.5); Glucose 90 mg/dL (70-105); Potassium 4.2 mmol/L (3.5-5.1); Protein, Total 6.1 g/dL (6.0-8.3); Sodium 135 mmol/L (136-145)
[2023-12-07 10:25] LABS: Troponin I Less than 0.010 ng/mL (< 0.028)
== END 2023-12-07 11:23 | disposition home or self-care (01) ==
LOC: ERS 09:18
DX: I95.9 Hypotension, unspecified (principal); I10 Essential (primary) hypertension; R56.9 Unspecified convulsions; Z55.6 Problems related to health literacy
CPT/HCPCS: 36415; 71045; 80053; 83605; 84484; 85025; 93005; 94760; 96360; 96361

== ENCOUNTER 2023-12-08 22:55 | Emergency (ER) | payer OTHER, MEDICAID | END 2023-12-08 23:44 | disposition home or self-care (01) | LOC: ERS 22:55 | DX: Z00.00 Encounter for general adult medical examination without abnormal findings (principal); I10 Essential (primary) hypertension; R56.9 Unspecified convulsions; R53.1 Weakness; M79.604 Pain in right leg; M79.605 Pain in left leg; Z79.899 Other long term (current) drug therapy | CPT/HCPCS: 99283 ==

== ENCOUNTER 2023-12-10 18:19 | Emergency (ER) | payer OTHER, MEDICAID | END 2023-12-10 20:10 | disposition home or self-care (01) | LOC: ERS 18:19 | DX: G62.9 Polyneuropathy, unspecified (principal); I10 Essential (primary) hypertension | CPT/HCPCS: 99283 ==

== ENCOUNTER 2023-12-11 07:44 | Emergency (ER) | payer OTHER, MEDICAID | END 2023-12-11 08:59 | disposition home or self-care (01) | LOC: ERS 07:44 | DX: G89.29 Other chronic pain (principal); M79.662 Pain in left lower leg; M79.661 Pain in right lower leg; I10 Essential (primary) hypertension; Z79.899 Other long term (current) drug therapy | CPT/HCPCS: 99283 ==

== ENCOUNTER 2023-12-14 03:08 | Emergency (ER) | payer OTHER, MEDICAID | END 2023-12-14 04:31 | disposition home or self-care (01) | LOC: ERS 03:08 | DX: Z00.00 Encounter for general adult medical examination without abnormal findings (principal); I10 Essential (primary) hypertension; Z79.899 Other long term (current) drug therapy | CPT/HCPCS: 93005 ==

== ENCOUNTER 2023-12-17 14:29 | Emergency (ER) | payer OTHER, MEDICAID | END 2023-12-17 15:10 | disposition home or self-care (01) | LOC: ERS 14:29 | DX: Z00.00 Encounter for general adult medical examination without abnormal findings (principal); I10 Essential (primary) hypertension; Z79.899 Other long term (current) drug therapy | CPT/HCPCS: 99283 ==

== ENCOUNTER 2023-12-20 06:39 | Emergency (ER) | payer OTHER, MEDICAID ==
[2023-12-20] MEDS ORDERED: Acetaminophen 500 MG TAB ONE (07:49)
== END 2023-12-20 09:04 | disposition home or self-care (01) ==
LOC: ERS 06:39
DX: G89.29 Other chronic pain (principal); M79.605 Pain in left leg; M79.604 Pain in right leg; I10 Essential (primary) hypertension; Z79.899 Other long term (current) drug therapy
CPT/HCPCS: 71046

== ENCOUNTER 2023-12-22 03:09 | Emergency (ER) | payer OTHER, MEDICAID | END 2023-12-22 04:01 | disposition home or self-care (01) | LOC: ERS 03:09 | DX: R55 Syncope and collapse (principal); I10 Essential (primary) hypertension; Z55.6 Problems related to health literacy; Z79.899 Other long term (current) drug therapy | CPT/HCPCS: 93005 ==

== ENCOUNTER 2023-12-23 05:15 | Emergency (ER) | payer OTHER, MEDICAID | END 2023-12-23 06:55 | disposition home or self-care (01) | LOC: ERS 05:15 | DX: R20.8 Other disturbances of skin sensation (principal); I10 Essential (primary) hypertension | CPT/HCPCS: 99283 ==

== ENCOUNTER 2023-12-28 12:33 | Emergency (ER) | payer OTHER, MEDICAID ==
[2023-12-28] MEDS ORDERED: Ketorolac Tromethamine 30 MG (1 mL) VIAL ONE (14:57)
== END 2023-12-28 15:09 | disposition home or self-care (01) ==
LOC: ERS 12:33
DX: G62.9 Polyneuropathy, unspecified (principal); M79.662 Pain in left lower leg; M79.661 Pain in right lower leg; I10 Essential (primary) hypertension
CPT/HCPCS: 96372; 99283; J1885

== ENCOUNTER 2023-12-29 22:09 | Emergency (ER) | payer OTHER, MEDICAID ==
[2023-12-29 23:25] LABS: #Eosinphils 0.2 thou/uL (0.0-0.7); #Monocytes 0.4 thou/uL (0.11-0.59); #Neutrophils 2.1 thou/uL (1.40-6.50); %Basophils 0.7 % (0.0-1.0); %Eosinophils 3.8 % (0.0-10.0); %Lymphocytes 35.5 % (21.0-51.0); %Monocytes 9.5 % (0.0-10.0); Hematocrit 37.9 % (36.0-47.0); Hemoglobin 12.4 g/dL (12.0-16.0); Mean Corpuscular HGB CONC 32.7 g/dL (32.0-36.0); Mean Corpuscular Hemoglobin 30.8 pg (27.0-31.0); Mean Corpuscular Volume 94.3 fl (78.0-98.0); Mean Platelet Volume 9.6 fL (7.4-10.4); Platelet Count 155 10x3/uL (130-400); RBC Distribution Width 13.7 % (11.5-14.5); Red Blood Cell (RBC) Count 4.02 mill/uL (4.20-5.40); White Blood Cell (WBC) Count 4.2 10x3/uL (4.8-10.8)
[2023-12-29 23:55] LABS: Troponin I Less than 0.010 ng/mL (< 0.028)
[2023-12-30] LABS: AST (SGOT) 30 U/L (5-34); Albumin 3.3 g/dL (3.5-5.0); Anion Gap 16 mmol/L (10-20); BUN (Urea Nitrogen) 16 mg/dL (9.8-20.1); Bilirubin, Total 0.4 mg/dL (0.2-1.2); Calc. Creatinine Clearance 0 mL/min (70-130); Calcium 9.4 mg/dL (7.8-10.44); Carbon Dioxide 18 mmol/L (22-29); Chloride 109 mmol/L (98-107); Estimated GFR 102; Globulin 3.6 g/dL (2.4-3.5); Glucose 72 mg/dL (70-105); Potassium 3.8 mmol/L (3.5-5.1); Protein, Total 6.9 g/dL (6.0-8.3); Sodium 139 mmol/L (136-145)
[2023-12-30 00:01] LABS: Alkaline Phosphatase 75 U/L (40-110)
[2023-12-30 00:04] LABS: ALT (SGPT) 15 U/L (8-55)
== END 2023-12-30 00:47 | disposition home or self-care (01) ==
LOC: ERS 22:09
DX: R55 Syncope and collapse (principal); G89.29 Other chronic pain; M79.605 Pain in left leg; M79.604 Pain in right leg; I10 Essential (primary) hypertension; W19.XXXA Unspecified fall, initial encounter; Y93.01 Activity, walking, marching and hiking; Z00.00 Encounter for general adult medical examination without abnormal findings; Z79.899 Other long term (current) drug therapy
CPT/HCPCS: 36415; 80053; 84484; 85025; 93005

== ENCOUNTER 2024-01-05 01:36 | Emergency (ER) | payer OTHER, MEDICAID | END 2024-01-05 02:04 | disposition home or self-care (01) | LOC: ERS 01:36 | DX: R20.2 Paresthesia of skin (principal); I10 Essential (primary) hypertension; Z55.6 Problems related to health literacy | CPT/HCPCS: 99283 ==

== ENCOUNTER 2024-01-12 04:02 | Emergency (ER) | payer OTHER, MEDICAID ==
[2024-01-12] MEDS ORDERED: Ibuprofen 200 MG TAB ONE (05:03)
== END 2024-01-12 05:07 | disposition home or self-care (01) ==
LOC: ERS 04:02
DX: J02.8 Acute pharyngitis due to other specified organisms (principal); I10 Essential (primary) hypertension
CPT/HCPCS: 99282

== ENCOUNTER 2024-01-12 23:03 | Emergency (ER) | payer OTHER, MEDICAID | END 2024-01-13 00:11 | disposition home or self-care (01) | LOC: ERS 23:03 | DX: Z71.1 Person with feared health complaint in whom no diagnosis is made (principal); I10 Essential (primary) hypertension; J02.8 Acute pharyngitis due to other specified organisms | CPT/HCPCS: 99282; 99283 ==

== ENCOUNTER 2024-01-14 07:39 | Emergency (ER) | payer OTHER, MEDICAID | END 2024-01-14 08:15 | disposition home or self-care (01) | LOC: ERS 07:39 | DX: H53.2 Diplopia (principal); R51.9 Headache, unspecified; I10 Essential (primary) hypertension ==

== ENCOUNTER 2024-01-14 15:50 | Emergency (ER) | payer OTHER, MEDICAID ==
[2024-01-14] MEDS ORDERED: Acetaminophen 500 MG TAB ONE (16:20)
== END 2024-01-14 16:40 | disposition home or self-care (01) ==
LOC: ERS 15:50
DX: F22 Delusional disorders (principal); I10 Essential (primary) hypertension; Z55.6 Problems related to health literacy
CPT/HCPCS: 99282; 99283

== ENCOUNTER 2024-02-14 23:59 | Emergency (ER) | payer OTHER | END 2024-02-15 02:05 | disposition home or self-care (01) | LOC: ERS 23:59 | DX: M79.89 Other specified soft tissue disorders (principal); I10 Essential (primary) hypertension; Z79.899 Other long term (current) drug therapy; M79.604 Pain in right leg; G89.29 Other chronic pain; M79.605 Pain in left leg ==

== ENCOUNTER 2024-02-20 05:12 | Emergency (ER) | payer OTHER, MEDICAID | END 2024-02-20 05:55 | disposition home or self-care (01) | LOC: ERS 05:12 | DX: G62.89 Other specified polyneuropathies (principal); I10 Essential (primary) hypertension | CPT/HCPCS: 93005 ==

== ENCOUNTER 2024-02-22 04:20 | Emergency (ER) | payer OTHER, MEDICAID | END 2024-02-22 05:46 | disposition home or self-care (01) | LOC: ERS 04:20 | DX: M79.604 Pain in right leg (principal); I10 Essential (primary) hypertension | CPT/HCPCS: 99283 ==

== ENCOUNTER 2024-02-23 16:18 | Emergency (ER) | payer OTHER, MEDICAID | END 2024-02-23 17:43 | disposition home or self-care (01) | LOC: ERS 16:18 | DX: M79.89 Other specified soft tissue disorders (principal); I10 Essential (primary) hypertension; Z55.0 Illiteracy and low-level literacy | CPT/HCPCS: 99282 ==

== ENCOUNTER 2024-02-24 14:12 | Emergency (ER) | payer OTHER, MEDICAID | END 2024-02-24 17:04 | LOC: ERS 14:12 | DX: Z53.21 Procedure and treatment not carried out due to patient leaving prior to being seen by health care provider (principal) ==

== ENCOUNTER 2024-03-09 02:01 | Emergency (ER) | payer OTHER | END 2024-03-09 03:01 | LOC: ERS 02:01 | DX: Z53.21 Procedure and treatment not carried out due to patient leaving prior to being seen by health care provider (principal) ==

== ENCOUNTER 2024-03-09 11:20 | Emergency (ER) | payer OTHER ==
[2024-03-09 12:34] LABS: #Basophils Less than 0.03 10x3/uL (0.0-0.2); %Basophils 0.6 % (0.0-1.0); %Eosinophils 1.7 % (0.0-10.0); %Lymphocytes 37.1 % (21.0-51.0); %Monocytes 7.5 % (0.0-10.0); %Neutrophils 52.8 % (42.0-75.0); Hematocrit 34.6 % (36.0-47.0); Hemoglobin 11.7 g/dL (12.0-16.0); Mean Corpuscular HGB CONC 33.8 g/dL (32.0-36.0); Mean Corpuscular Volume 91.5 fL (78.0-98.0); Mean Platelet Volume 9.3 fL (7.4-10.4); Platelet Count 154 10x3/uL (130-400); RBC Distribution Width 12.9 % (11.5-14.5); Red Blood Cell (RBC) Count 3.78 mill/uL (4.20-5.40)
[2024-03-09 12:49] LABS: ALT (SGPT) 8 U/L (8-55); AST (SGOT) 16 U/L (5-34); Acetaminophen Less than 10 mcg/mL (10.0-30.0); Albumin 3.3 g/dL (3.5-5.0); Alcohol Less than 10.0 mg/dL (Less than 10); Alkaline Phosphatase 79 U/L (40-110); Anion Gap 12 mmol/L (10-20); BUN (Urea Nitrogen) 17 mg/dL (9.8-20.1); Bilirubin, Total 0.4 mg/dL (0.2-1.2); Calc. Creatinine Clearance 0 mL/min (70-130); Calcium 9.3 mg/dL (7.8-10.44); Carbon Dioxide 21 mmol/L (22-29); Chloride 111 mmol/L (98-107); Estimated GFR 103; Globulin 3.2 g/dL (2.4-3.5); Glucose 95 mg/dL (70-105); Magnesium 1.7 mg/dL (1.6-2.6); Potassium 3.4 mmol/L (3.5-5.1); Protein, Total 6.5 g/dL (6.0-8.3); Salicylate Less than 8.0 mg/dL (15.0-30.0); Sodium 141 mmol/L (136-145)
[2024-03-09 12:55] LABS: Troponin I Less than 0.010 ng/mL (< 0.028)
[2024-03-09 13:41] LABS: Bacteria/HPF None Seen HPF (None Seen); Bilirubin Negative (Negative); Blood, Urine Negative (Negative); CAUTI Indications for Culture Alt mental st,lethar; Clarity Clear (Clear); Glucose, Urine (Dipstick) Normal (Negative); Ketone, Urine Negative (Negative); Leukocyte Negative Leu/uL (Negative); Nitrite Negative (Negative); Protein, Urine (Dipstick) Negative (Neg-Trace); RBC/HPF 0-3 HPF (0-3); Squamous Epithelial 0-3 HPF (0-3); Urobilinogen Normal mg/dL (Less than 2); WBC/HPF 0-3 HPF (0-3)
[2024-03-09 13:43] LABS: Urine Culture Reflex No No
[2024-03-09 13:48] LABS: Amphetamine Not Detected (NotDetected); Barbiturates Screen Not Detected (NotDetected); Benzodiazepine Screen Not Detected (NotDetected); Cocaine Metabolite Screen Not Detected (NotDetected); Methadone Not Detected (NotDetected); Methamphetamine Not Detected (NotDetected); Opiate Screen Not Detected (NotDetected); Oxycodone Screen Not Detected (NotDetected); Phencyclidine (PCP) Not Detected (NotDetected); THC/Cannabinoid Screen Not Detected (NotDetected); Tricyclic Screen Not Detected (NotDetected)
[2024-03-09] MEDS ORDERED: HYDROcodone/Acetaminophen 5/325 mg Tablet PO PRN (19:07)
[2024-03-09] MEDS ORDERED: Acetaminophen 325 MG TAB PO PRN (19:07)
[2024-03-09 21:12] LABS: Troponin I Less than 0.010 ng/mL (< 0.028)
[2024-03-09 23:39] LABS: Troponin I Less than 0.010 ng/mL (< 0.028)
[2024-03-09] MEDS ORDERED: levETIRAcetam 500 MG TAB ONE (23:46)
[2024-03-09] MEDS ORDERED: Ziprasidone 20 MG CAP ONE (23:46)
[2024-03-10] MEDS ORDERED: Enoxaparin 40 MG (0.4 mL) SYRINGE SC SCH (09:00)
== END 2024-03-09 23:53 | disposition short-term general hospital (02) ==
LOC: ERS 11:20
DX: R55 Syncope and collapse (principal); I10 Essential (primary) hypertension; Z75.3 Unavailability and inaccessibility of health-care facilities; Z55.6 Problems related to health literacy; Z79.899 Other long term (current) drug therapy
CPT/HCPCS: 36415; 36556; 71045; 71275; 80053; 80306; 80307; 81001; 83735; 83880; 84484; 85025; 85379; 93005; 93880